=== PATIENT | female | born 1965 | race Caucasian/White ===

== ENCOUNTER → 2017-08-21 13:49 | Outpatient (CLI) | payer OTHER, SELFPAY ==
[2017-08-21 15:16] LABS: Add Manual Diff / Slide Review NO; Basophils Percent Auto 1.3 % (0-2); Eosinophils Percent Auto 2.4 % (2-4); Hematocrit 41.9 % (36-46); Hemoglobin 14.2 g/dL (12.0-16.0); Lymphocytes Percent Auto 39.7 % (25-40); Mean Corpuscular HGB Conc 33.8 % (30-36); Mean Corpuscular Hemoglobin 31.1 PG (26-34); Mean Corpuscular Volume 92.1 fL (80-100); Monocytes Percent Auto 7.9 % (3-14); Neutrophils Absolute Auto 3000 /uL (3000-5900); Neutrophils Percent Auto 48.7 % (50-75); Platelet Count 295 X10^3/uL (150-400); Red Blood Cell Count 4.55 X10^6/uL (4.0-5.2); Red Cell Distribution Width 15.2 % (11.6-14.8); White Blood Cell Count 6.2 X10^3/uL (4.5-11.0)
[2017-08-21 15:25] LABS: Alanine Aminotransferase 37 IU/L (9-52); Albumin 4.7 g/dL (3.5-5.0); Albumin Globulin Ratio 1.6 (1.0-2.8); Alkaline Phosphatase 68 U/L (38-126); Aspartate Aminotransferase 34 IU/L (14-36); BUN Creatinine Ratio 23.3 (6-22); Bilirubin Total 0.7 mg/dL (0.2-1.3); Blood Urea Nitrogen 14 mg/dL (7-17); Calcium 9.1 mg/dL (8.4-10.2); Carbon Dioxide 27 mmol/L (22-32); Chloride 102 mmol/L (98-107); Estimated Glomerular Filt Rate > 60.0 mL/min (>60); Glucose 94 mg/dL (70-100); HEMOLYSIS 42 (0-50); Sodium 142 mmol/L (137-145); Total Protein 7.7 g/dL (6.3-8.2)
[2017-08-21 16:24] LABS: TSH w/ Reflex to FT4 2.46 uIU/mL (0.47-4.68)
[2017-08-25 14:26] LABS: 1 25 Dihydroxy Vitamin D 76 pg/mL (18-72)
== END ==
PROVIDERS: Family Provider Specialist; PCP Physician Assistant; Visit Provider Physician Assistant
DX: E55.9 Vitamin D deficiency, unspecified (principal); R53.83 Other fatigue; Z98.890 Other specified postprocedural states
CPT/HCPCS: 36415; 80053; 82652; 84443; 85025

== ENCOUNTER → 2017-12-15 10:00 | Outpatient (CLI) | payer OTHER, SELFPAY | PROVIDERS: Family Provider Specialist; PCP Physician Assistant | DX: Z23 Encounter for immunization (principal) | CPT/HCPCS: 90471; 90686 ==

== ENCOUNTER → 2018-09-13 11:26 | Outpatient (CLI) | payer OTHER, SELFPAY ==
--- NOTE | 2018-09-13 | DI.MG.S_ITS ---
BILATERAL DIGITAL SCREENING MAMMOGRAM 3D/2D WITH CAD: 09/13/2018 CLINICAL: Routine screening. Family history of breast cancer. Comparison is made to exams dated: 05/08/2017 mammogram, 04/21/2016 mammogram, and 11/06/2014 mammogram - [facility]. There are scattered fibroglandular elements in both breasts. Current study was also evaluated with a Computer Aided Detection (CAD) system. No significant masses, calcifications, or other findings are seen in either breast. There has been no significant interval change. IMPRESSION: NEGATIVE There is no mammographic evidence of malignancy. A 1 year screening mammogram is recommended. This exam was interpreted at Station ID: [id number]. NOTE: For mammograms, a report in lay terms will be sent to the patient. Approximately 15% of breast malignancies will not be visualized mammographically. In the management of a palpable breast mass, a negative mammogram must not discourage biopsy of a clinically suspicious lesion. Electronically Signed By: Bryon valdivia/connie:09/13/2018 12:01:14 letter sent: Normal Exam ACR BI-RADS Category 1: Negative 3341F
== END ==
PROVIDERS: Family Provider Specialist; PCP Physician Assistant; Visit Provider Physician Assistant
DX: Z12.31 Encounter for screening mammogram for malignant neoplasm of breast (principal); Z80.3 Family history of malignant neoplasm of breast
CPT/HCPCS: 77063; 77067

== ENCOUNTER → 2018-12-09 13:57 | Outpatient (CLI) | payer OTHER, SELFPAY | PROVIDERS: PCP Physician Assistant | DX: Z23 Encounter for immunization (principal) | CPT/HCPCS: 90471; 90686 ==

== ENCOUNTER → 2019-12-09 11:14 | Outpatient (CLI) | payer OTHER, SELFPAY ==
--- NOTE | 2019-12-09 | DI.MG.S_ITS ---
BILATERAL DIGITAL SCREENING MAMMOGRAM 3D/2D WITH CAD: 12/09/2019 CLINICAL: Routine screening. Family history of breast cancer. Comparison is made to exams dated: 09/13/2018 mammogram, 05/08/2017 mammogram, and 04/21/2016 mammogram - [facility]. There are scattered fibroglandular elements in both breasts. Current study was also evaluated with a Computer Aided Detection (CAD) system. There are grouped calcifications in the left breast central to the nipple middle depth. No other significant masses, calcifications, or other findings are seen in either breast. IMPRESSION: INCOMPLETE: NEEDS ADDITIONAL IMAGING EVALUATION The grouped calcifications in the left breast are indeterminate. A spot compression view is recommended. This exam was interpreted at Station ID: [id number]. NOTE: For mammograms, a report in lay terms will be sent to the patient. Approximately 15% of breast malignancies will not be visualized mammographically. In the management of a palpable breast mass, a negative mammogram must not discourage biopsy of a clinically suspicious lesion. Electronically Signed By: Moriah Campos M.D. lk/:12/09/2019 11:51:44 letter sent: Additional Imaging Needed ACR BI-RADS Category 0: Incomplete 3340F
== END ==
PROVIDERS: PCP Physician Assistant; Referring Provider Physician Assistant; Visit Provider Physician Assistant
DX: Z12.31 Encounter for screening mammogram for malignant neoplasm of breast (principal); Z80.3 Family history of malignant neoplasm of breast
CPT/HCPCS: 77063; 77067

== ENCOUNTER → 2019-12-30 09:46 | Outpatient (CLI) | payer OTHER, SELFPAY ==
[2019-12-30 10:50] LABS: Add Manual Diff / Slide Review NO; Basophils Absolute Auto 0 /uL (0-100); Basophils Percent Auto 0.3 % (0-2); Eosinophils Absolute Auto 100 /uL (0-450); Eosinophils Percent Auto 0.6 % (2-4); Hematocrit 41.1 % (36-46); Hemoglobin 13.7 g/dL (12.0-16.0); Lymphocytes Absolute Auto 1500 /uL (1100-4500); Lymphocytes Percent Auto 16.6 % (25-40); Mean Corpuscular HGB Conc 33.5 % (30-36); Mean Corpuscular Volume 95.6 fL (80-100); Monocytes Absolute Auto 600 /uL (0-900); Monocytes Percent Auto 6.5 % (3-14); Neutrophils Absolute Auto 7000 /uL (1500-7000); Platelet Count 311 X10^3/uL (150-400); Red Cell Distribution Width 13.1 % (11.6-14.8); White Blood Cell Count 9.2 X10^3/uL (4.5-11.0)
[2019-12-30 11:01] LABS: Alanine Aminotransferase 27 IU/L (<35); Albumin 4.7 g/dL (3.5-5.0); Albumin Globulin Ratio 1.7 (1.0-2.8); Alkaline Phosphatase 74 U/L (38-126); Aspartate Aminotransferase 27 IU/L (14-36); BUN Creatinine Ratio 20.9 (6-22); Bilirubin Total 0.6 mg/dL (0.2-1.3); Blood Urea Nitrogen 14 mg/dL (7-17); Calcium 9.7 mg/dL (8.4-10.2); Carbon Dioxide 26 mmol/L (22-32); Chloride 107 mmol/L (98-107); Cholesterol 150 mg/dL (140-199); Estimated Glomerular Filt Rate > 60.0 mL/min (>60); Globulin 2.7 g/dL (1.7-4.1); Glucose 92 mg/dL (70-100); HDL Cholesterol 69 mg/dL (40-60); HEMOLYSIS < 15 (0-50); LDL Cholesterol Calculated 70 mg/dL (<100); Potassium 4.3 mmol/L (3.4-5.1); Sodium 140 mmol/L (137-145); Total Protein 7.4 g/dL (6.3-8.2); Triglycerides 57 mg/dL (35-150)
[2019-12-30 11:52] LABS: Vitamin D 25 Hydroxy (D3) 36.6 ng/mL (30.0-100.0)
== END ==
PROVIDERS: PCP Physician Assistant; Referring Provider Physician Assistant; Visit Provider Physician Assistant
DX: F41.9 Anxiety disorder, unspecified (principal); E55.9 Vitamin D deficiency, unspecified; E78.2 Mixed hyperlipidemia
CPT/HCPCS: 36415; 80053; 80061; 82306; 85025

== ENCOUNTER → 2020-03-14 07:50 | Outpatient (CLI) | payer OTHER, SELFPAY ==
[2020-03-14] MEDS: COVID-19 VACC(MODERNA-1)/PF 100 MCG/0.5 ML VIAL IM (07:56)
== END ==
PROVIDERS: PCP Family Medicine; Visit Provider Internal Medicine
DX: Z23 Encounter for immunization (principal)
CPT/HCPCS: 0011A; 91301

== ENCOUNTER → 2020-04-10 07:56 | Outpatient (CLI) | payer OTHER, SELFPAY ==
[2020-04-10] MEDS: COVID-19 VACC #2, MRNA(MOD) 100 MCG/0.5 ML VIAL IM (08:09)
== END ==
PROVIDERS: PCP Family Medicine; Visit Provider Internal Medicine
DX: Z23 Encounter for immunization (principal)
CPT/HCPCS: 0012A; 91301

== ENCOUNTER → 2020-12-13 13:17 | Outpatient (CLI) | payer OTHER, SELFPAY ==
--- NOTE | 2021-01-03 08:41 | PM.CARDMON.1 ---
[employer] Report Referral & Results Date Patient Seen: 12/13/20 Requesting provider: Valencia Brush Indication: Palpitations Duration of monitoring (days): 10 Diary information: There were 3 patient triggered events and 1 patient diary entry Patient triggered events were associated with (within 45 seconds) sinus rhythm and PVCs Patient diary event was associated with sinus rhythm only Data: Minimum heart rate was 42 beats per minute at 02:06 on 12/23/2020 Maximum heart rate was 176 beats per minute at 09:13 on 12/19/2020 during a run of SVT Less than 1% of identified beats were ventricular or supraventricular ectopic in origin, which would classify them as rare. There were 4 runs of SVT the fastest being the 6 beat run noted above at 174 beats per minute, which was also the longest run Impression: Essentially normal 10 day alarm security or surveillance monitor and Patient's symptoms of palpitations may be due to simple PVCs. Overall burden of PVCs was rare Very rare very brief runs of a supraventricular source as well. Clinical correlation suggested
== END ==
PROVIDERS: PCP Family Medicine; Referring Provider Physician Assistant; Visit Provider Physician Assistant
DX: R00.2 Palpitations (principal)
CPT/HCPCS: 93246; 93248

== ENCOUNTER → 2020-12-13 | Outpatient (CLI) | payer OTHER, SELFPAY | PROVIDERS: PCP Family Medicine; Referring Provider Internal Medicine; Visit Provider Internal Medicine | DX: Z23 Encounter for immunization (principal) | CPT/HCPCS: 90471; 90686 ==

== ENCOUNTER → 2020-12-21 16:14 | Outpatient (CLI) | payer OTHER, SELFPAY | PROVIDERS: PCP Family Medicine; Referring Provider Physician Assistant; Visit Provider Physician Assistant | DX: Z12.31 Encounter for screening mammogram for malignant neoplasm of breast (principal); Z53.8 Procedure and treatment not carried out for other reasons ==

== ENCOUNTER → 2020-12-25 08:35 | Outpatient (CLI) | payer OTHER, SELFPAY ==
--- NOTE | 2020-12-25 | DI.MG.S_ITS ---
BILATERAL DIGITAL SCREENING MAMMOGRAM 3D/2D WITH CAD: 12/25/2020 CLINICAL: Routine screening. Family history of breast cancer. Comparison is made to exams dated: 12/09/2019 mammogram, 09/13/2018 mammogram, and 05/08/2017 mammogram - [facility]. There are scattered fibroglandular elements in both breasts. Current study was also evaluated with a Computer Aided Detection (CAD) system. No significant masses, calcifications, or other findings are seen in either breast. There has been no significant interval change. IMPRESSION: NEGATIVE There is no mammographic evidence of malignancy. A 1 year screening mammogram is recommended. This exam was interpreted at Station ID: [id number]. NOTE: For mammograms, a report in lay terms will be sent to the patient. Approximately 15% of breast malignancies will not be visualized mammographically. In the management of a palpable breast mass, a negative mammogram must not discourage biopsy of a clinically suspicious lesion. Electronically Signed By: Joni Velasquez M.D., jr/connie:12/25/2020 10:35:34 letter sent: Normal Exam ACR BI-RADS Category 1: Negative 3341F
== END ==
PROVIDERS: PCP Family Medicine; Referring Provider Physician Assistant; Visit Provider Physician Assistant
DX: Z12.31 Encounter for screening mammogram for malignant neoplasm of breast (principal); Z80.3 Family history of malignant neoplasm of breast
CPT/HCPCS: 77063; 77067

== ENCOUNTER → 2021-01-15 08:36 | Outpatient (CLI) | payer OTHER, SELFPAY ==
[2021-01-15 10:16] LABS: Add Manual Diff / Slide Review NO; Basophils Absolute Auto 100 /uL (0-100); Basophils Percent Auto 1.1 % (0-2); Eosinophils Absolute Auto 100 /uL (0-450); Eosinophils Percent Auto 1.4 % (2-4); Hematocrit 42.2 % (36-46); Hemoglobin 14.2 g/dL (12.0-16.0); Lymphocytes Absolute Auto 2400 /uL (1100-4500); Lymphocytes Percent Auto 30.8 % (25-40); Mean Corpuscular HGB Conc 33.7 % (30-36); Mean Corpuscular Hemoglobin 31.3 PG (26-34); Mean Corpuscular Volume 92.9 fL (80-100); Monocytes Absolute Auto 500 /uL (0-900); Monocytes Percent Auto 6.7 % (3-14); Neutrophils Absolute Auto 4700 /uL (1500-7000); Platelet Count 350 X10^3/uL (150-400); Red Blood Cell Count 4.54 X10^6/uL (4.0-5.2); Red Cell Distribution Width 13.3 % (11.6-14.8); White Blood Cell Count 7.8 X10^3/uL (4.5-11.0)
[2021-01-15 10:36] LABS: Alanine Aminotransferase 35 IU/L (<35); Albumin 5.1 g/dL (3.5-5.0); Albumin Globulin Ratio 1.7 (1.0-2.8); Alkaline Phosphatase 92 U/L (38-126); Aspartate Aminotransferase 35 IU/L (14-36); BUN Creatinine Ratio 14.7 (6-22); Bilirubin Total 0.5 mg/dL (0.2-1.3); Blood Urea Nitrogen 11 mg/dL (7-17); Calcium 9.9 mg/dL (8.4-10.2); Carbon Dioxide 25 mmol/L (22-32); Chloride 105 mmol/L (98-107); Cholesterol 187 mg/dL (140-199); Estimated Glomerular Filt Rate > 60.0 mL/min (>60); Glucose 94 mg/dL (70-100); HDL Cholesterol 87 mg/dL (40-60); HEMOLYSIS < 15 (0-50); LDL Cholesterol Calculated 83 mg/dL (<100); Magnesium 2.1 mg/dL (1.6-2.3); Potassium 4.5 mmol/L (3.4-5.1); Sodium 140 mmol/L (137-145); Total Protein 8.1 g/dL (6.3-8.2); Triglycerides 86 mg/dL (35-150)
[2021-01-15 10:44] LABS: Vitamin D 25 Hydroxy (D3) 52.8 ng/mL (30.0-100.0)
[2021-01-15 10:57] LABS: TSH w/ Reflex to FT4 2.68 uIU/mL (0.47-4.68)
== END ==
PROVIDERS: PCP Family Medicine; Referring Provider Physician Assistant; Visit Provider Physician Assistant
DX: R00.2 Palpitations (principal); I49.3 Ventricular premature depolarization; E78.2 Mixed hyperlipidemia; E55.9 Vitamin D deficiency, unspecified
CPT/HCPCS: 36415; 80053; 80061; 82306; 83735; 84443; 85025

== ENCOUNTER → 2021-02-08 14:54 | Outpatient (CLI) | payer OTHER, SELFPAY ==
--- NOTE | 2021-02-08 14:56 | DI.RAD.S_ITS ---
PROCEDURE: XR DEXA AXIAL SKELETON INDICATIONS: Other specified disorders of bone density and stru COMPARISON: None. FINDINGS: This blank DEXA report has been sent in error by the PACS system. The correct and complete report will be forthcoming in 1-2 days. Thank you for your patience and understanding. Dictated by: Philomena Tierney MD, PhD on 02/08/2021 at 16:51 Approved by: Philomena Tierney MD, PhD on 02/08/2021 at 16:52
== END ==
PROVIDERS: PCP Family Medicine; Referring Provider Physician Assistant; Visit Provider Physician Assistant
DX: M85.851 Other specified disorders of bone density and structure, right thigh (principal); Z78.0 Asymptomatic menopausal state; Z82.62 Family history of osteoporosis
CPT/HCPCS: 77080

== ENCOUNTER 2021-03-06 23:40 | Emergency (ER) | payer OTHER, SELFPAY ==
--- NOTE | 2021-03-06 23:59 | ED_ITS ---
HPI - Syncope General Chief Complaint: Syncope Stated Complaint: fainted/hit forhead Time Seen by Provider: 03/06/21 23:50 History of Present Illness HPI narrative: 55-year-old female nonsmoker with historically low blood pressure presents with a chief complaint of a head injury after a single pull episode just prior to her arrival. She had been in her normal state of health this evening and had laid down and take a nap on the couch. She went to get up and felt lightheaded which is not necessarily abnormal for her. She sat back for a moment and then upon trying to stand she blacked out fell forward striking her head on the ground. Since then she has had some nausea and continues to be unsteady on her feet. She has had no vomiting and takes no blood thinners. She denies any recent illness. She has had no change in medications or diet. Related Data Home Medications Medication Instructions Recorded Confirmed clonazepam 0.5 mg tablet 0.25 mg PO BEDTIME PRN 01/10/20 01/10/20 levonorgestrel 20 mcg/24 hours (7 INTRAUTERINE 01/10/20 01/10/20 yrs) 52 mg intrauterine device (Mirena) Previous Rx's Medication Instructions Recorded meclizine 25 mg tablet 25 mg PO BID-TID PRN #14 tab 03/07/21 ondansetron 4 mg disintegrating 4 mg PO TID-QID PRN #20 tab 03/07/21 tablet promethazine 25 mg rectal 25 mg WA Q6H PRN #12 ea 03/07/21 suppository Allergies Allergy/AdvReac Type Severity Reaction Status Date / Time No Known Drug Allergies Allergy Unverified 03/07/21 00:17 Review of Systems Review of Systems Narrative: GENERAL: Denies chills, fatigue, malaise, fever, sweats. HEENT: Denies sinus pain, ear pain, sore throat, difficulty swallowing, dizziness. RESPIRATORY: Denies dyspnea, cough, wheezing, hemoptysis, sputum. CARDIOVASCULAR: See HPI GASTROINTESTINAL: Denies nausea, vomiting, abdominal pain, diarrhea, constip ation, melena. : Denies dysuria, frequency, incontinence, hematuria, urinary retention. MUSCULOSKELETAL: denies weakness, joint pain, or bony pain SKIN: See HPI NEUROLOGIC: Denies weakness, headache, numbness, change in speech, confusion, seizures, incoordination. PSYCHIATRIC: No concerning psychosocial issues. 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 ([employer] seatbelt use: always working smoke detector in home: Yes fire extinguisher in home: Yes carbon monox detector in home: Yes do you feel safe at home: Yes Smoking Status: Never smoker second hand exposure: No alcohol intake: current substance use type: does not use Smoking Status: Never smoker Exam Narrative Exam Narrative: GENERAL: [55 year old patient appears stated age. Well-developed patient, in mild distress. GCS 15 HEAD: Forehead contusion with central laceration and minimal active bleeding, no evidence of depressed skull fracture EYES: Pupils equal round and reactive. No hyphema Extraocular motions intact. No scleral icterus. No injection or drainage. ENT: Nose without bleeding, purulent drainage. No nasal septal hematoma or malocclusion Throat without erythema, tonsillar hypertrophy or exudate. Airway patent. NECK: Trachea midline. Non tender CARDIOVASCULAR: Regular rate and rhythm without murmurs, gallops, or rubs. RESPIRATORY: Clear to auscultation. Breath sounds equal bilaterally. No wheezes, rales, or rhonchi. GASTROINTESTINAL: Abdomen soft, non-tender, nondistended. EXTREMITIES: No edema or joint tenderness. BACK: Nontender without deformity or crepitance. No flank tenderness. NEURO: AOx3. SKIN: No rash or erythema of visible areas Initial Vital Signs Initial Vital Signs: Vital Signs Temperature 97.9 F 03/07/21 00:00 Pulse Rate 84 03/07/21 00:00 Respiratory Rate 16 03/07/21 00:00 Blood Pressure 156/62 H 03/07/21 00:00 Pulse Oximetry 98 03/07/21 00:00 Course Orders Ordered: Discontinued Medications Acetaminophen (Acetaminophen 325 Mg Tablet) 650 mg PO NOW ONE Stop: 03/07/21 03:23 Last Admin: 03/07/21 03:30 Dose: 650 mg Documented by: GHANSHYAM Sodium Chloride (Normal Saline 0.9%) 1,000 mls @ 1,000 mls/hr IV BOLUS ONE Stop: 03/07/21 01:01 Last Infusion: 03/07/21 02:26 Dose: 0 mls/hr Documented by: Admin: 03/07/21 00:30 Dose: 1,000 mls/hr Documented by: GHANSHYAM Sodium Chloride (Normal Saline 0.9%) 500 mls @ 1,000 mls/hr IV BOLUS ONE Stop: 03/07/21 06:00 Last Infusion: 03/07/21 06:33 Dose: 0 mls/hr Documented by: Admin: 03/07/21 05:57 Dose: 1,000 mls/hr Documented by: ANIKA Lorazepam (Lorazepam 2 Mg/Ml Inj) 0.5 mg IV NOW ONE Stop: 03/07/21 04:15 Last Admin: 03/07/21 04:24 Dose: 0.5 mg Documented by: ANIKA Meclizine HCl (Meclizine Hcl 12.5 Mg Tablet) 50 mg PO NOW ONE Stop: 03/07/21 03:24 Last Admin: 03/07/21 03:29 Dose: 50 mg Documented by: GHANSHYAM Ondansetron HCl (Ondansetron 4 Mg/2 Ml Inj) 4 mg IV NOW ONE Stop: 03/07/21 00:21 Last Admin: 03/07/21 00:27 Dose: 4 mg Documented by: GHANSHYAM Ondansetron HCl (Ondansetron 4 Mg/2 Ml Inj) 4 mg IV NOW ONE Stop: 03/07/21 01:57 Last Admin: 03/07/21 01:59 Dose: 4 mg Documented by: ANÍBAL Ondansetron HCl (Ondansetron 4 Mg Odt Prepack) 1 bottle MISC SEEINSTR ONE Stop: 03/07/21 06:06 Last Admin: 03/07/21 06:18 Dose: 1 bottle Documented by: ANÍBAL Pantoprazole Sodium (Pantoprazole 40 Mg Vial) 40 mg IV NOW ONE Stop: 03/07/21 01:36 Last Admin: 03/07/21 01:59 Dose: 40 mg Documented by: ANÍBAL Vital Signs Vital signs: Vital Signs - 8 hr 03/07/21 00:00 03/07/21 00:56 03/07/21 01:00 Temperature 97.9 F Pulse Rate 84 76 79 Pulse Rate [Orthostatic Sitting] Pulse Rate [Orthostatic Standing] Respiratory Rate 16 13 24 Blood Pressure 156/62 H 129/78 Blood Pressure [Orthostatic Sitting] Blood Pressure [Orthostatic Standing] Pulse Oximetry 98 99 98 03/07/21 01:18 03/07/21 01:21 03/07/21 01:27 Temperature Pulse Rate 75 86 Pulse Rate [Orthostatic Sitting] 75 Pulse Rate [Orthostatic Standing] 20 L Respiratory Rate 16 25 H Blood Pressure 139/75 137/76 Blood Pressure [Orthostatic Sitting] 139/75 Blood Pressure [Orthostatic Standing] 137/76 Pulse Oximetry 99 99 03/07/21 01:30 03/07/21 02:00 03/07/21 03:31 Temperature Pulse Rate 92 H 86 Pulse Rate [Orthostatic Sitting] Pulse Rate [Orthostatic Standing] Respiratory Rate 33 H 28 H Blood Pressure Blood Pressure [Orthostatic Sitting] Blood Pressure [Orthostatic Standing] Pulse Oximetry 80 L MDM - Syncope Lab Data Result diagrams: 03/07/21 00:06 03/07/21 00:06 Labs: Lab Results 03/07/21 03/07/21 Range/Units 00:06 00:06 WBC 6.9 (4.5-11.0) X10^3/uL RBC 4.55 (4.0-5.2) X10^6/uL Hgb 14.1 (12.0-16.0) g/dL Hct 42.3 (36-46) % MCV 93.0 (80-100) fL MCH 31.0 (26-34) PG MCHC 33.3 (30-36) % RDW 14.0 (11.6-14.8) % Plt Count 340 (150-400) X10^3/uL Neut % (Auto) 43.7 L (50-75) % Lymph % (Auto) 45.8 H (25-40) % [place] % (Auto) 7.4 (3-14) % Eos % (Auto) 2.1 (2-4) % Baso % (Auto) 1.0 (0-2) % Neut # (Auto) 3000 (8782-7317) /uL Lymph # (Auto) 3100 (3654-7636) /uL [place] # (Auto) 500 (0-900) /uL Eos # (Auto) 100 (0-450) /uL Baso # (Auto) 100 (0-100) /uL Sodium 143 (137-145) mmol/L Potassium 3.7 (3.4-5.1) mmol/L Chloride 106 (98-107) mmol/L Carbon Dioxide 29 (22-32) mmol/L BUN 13 (7-17) mg/dL Creatinine 0.77 (0.52-1.04) mg/dL Estimated GFR > 60.0 (>60) mL/min BUN/Creatinine Ratio 16.9 (6-22) Glucose 110 H (70-100) mg/dL Calcium 10.1 (8.4-10.2) mg/dL Imaging Data CT scan - head: Radiologist's Impression: [address] [address] [address] Scan Report Signed Patient: Marie Little MR#: [id number] : 1965 Acct:[id number] Age/Sex: 55 / F Date of Service: 03/07/21 Loc: ED Accession Number: [id number] ?? Procedure: CT head/brain wo con Ordering Provider: Roman Avendaño D.O. PROCEDURE:? CT HEAD/BRAIN WO CON ? INDICATIONS:? syncope, head injury ? TECHNIQUE:? Noncontrast 4.5 mm thick angled axial sections acquired from the foramen magnum to the vertex, with coronal and sagittal reformats.? For radiation dose reduction, the following was used:? automated exposure control, adjustment of mA and/or kV according to patient size.? ? COMPARISON:? None. ? FINDINGS:? Image quality:? Excellent.? ? CSF spaces:? Basal cisterns are patent.? No extra-axial fluid collections.? Ventricles are normal in size and shape.? ? Brain:? No midline shift.? No intracranial masses or hemorrhage.? Nuñez-white matter interface is normal.? ? Skull and face:? Calvarium and visualized facial bones are intact, without suspicious lesions.? Minimal left frontal scalp hematoma. ? Sinuses:? Visualized sinuses and mastoids are clear.? ? IMPRESSION:? ? 1. No acute intracranial process. ? 2.? Minimal left frontal scalp hematoma.? ? Dictated by: Amada Coto M.D. on 03/07/2021 at 0:53 ? ? Approved by: Amada Coto M.D. on 03/07/2021 at 0:54 ? MDM Narrative Medical decision making narrative: Patient feeling much better after above stated therapies. She's able to keep fluids down and has ambulated to the bathroom. She often has low BP (90s) and likely became a bit dehydrated yesterday at work. She became dizzy upon standing and fell to the ground striking her head. Labs were reassuring and imaging shows no evidence of intracranial abnormality. Her dizziness was largely positional and reproducible and presented in a different way after the fall. She likely has a post concussive syndrome and the possibility of traumatic BPPV is also considered. She's given extensive return precautions and has had her questions answered to her apparent satisfaction Discharge Plan Departure Patient Disposition: Home Clinical Impression: Syncope, Post concussion syndrome Instructions: DI for Concussion Activity Restrictions/Additional Instructions: *You have been diagnosed with [orthostatic hypotension resulting in syncope, head injury and postconcussive syndrome *What to do: *Please continue to take your regular medications as directed. [ x] New medication prescriptions sent to your pharmacy: [facility] ] [ ] New medication written as a paper prescription [ ] No new medications given *Please follow up with your primary care provider in 2-3 days, call for an appointment. Let them know you were seen in the Emergency Department and that we ask that you be seen in follow up. We will electronically transmit a record of today's note if your PCP is in our system *If you do not have a primary care provider please contact the [facility] Resource line at [phone]. They will ask some questions about your medical history and help get you set up with a doctor in the community. *Return to Emergency Department if you should have any new, worsening or concerning symptoms, such as [fever greater than 101 F, shaking chills, worsening pain, persistent vomiting or other bothersome symptoms] Prescriptions: New ondansetron 4 mg tablet,disintegrating 4 mg PO TID-QID PRN (Reason: nausea and vomiting) Qty: 20 0RF promethazine 25 mg suppository 25 mg WA Q6H PRN (Reason: nausea and vomiting) Qty: 12 0RF meclizine 25 mg tablet 25 mg PO BID-TID PRN (Reason: dizziness) Qty: 14 0RF No Action Mirena 20 mcg/24 hours (5 yrs) 52 mg intrauterine device intrauterine 0RF clonazepam 0.5 mg tablet 0.25 mg PO BEDTIME PRN0RF Rx Instructions: administer 30 minutes before bedtime Referrals: Chayito Melissa MD [Primary Care Provider] -
[2021-03-07] VITALS (12 sets, daily range): BP systolic 119–156; BP diastolic 62–78; PULSE 20–94; RESP 13–33; TEMP 36.6; O2SAT 80–99
--- NOTE | 2021-03-07 00:03 | DI.CT.S_ITS ---
PROCEDURE: CT HEAD/BRAIN WO CON INDICATIONS: syncope, head injury TECHNIQUE: Noncontrast 4.5 mm thick angled axial sections acquired from the foramen magnum to the vertex, with coronal and sagittal reformats. For radiation dose reduction, the following was used: automated exposure control, adjustment of mA and/or kV according to patient size. COMPARISON: None. FINDINGS: Image quality: Excellent. CSF spaces: Basal cisterns are patent. No extra-axial fluid collections. Ventricles are normal in size and shape. Brain: No midline shift. No intracranial masses or hemorrhage. Nuñez-white matter interface is normal. Skull and face: Calvarium and visualized facial bones are intact, without suspicious lesions. Minimal left frontal scalp hematoma. Sinuses: Visualized sinuses and mastoids are clear. IMPRESSION: 1. No acute intracranial process. 2. Minimal left frontal scalp hematoma. Dictated by: Amada Coto M.D. on 03/07/2021 at 0:53 Approved by: Amada Coto M.D. on 03/07/2021 at 0:54
[2021-03-07 00:23] LABS: BUN Creatinine Ratio 16.9 (6-22); Blood Urea Nitrogen 13 mg/dL (7-17); Calcium 10.1 mg/dL (8.4-10.2); Carbon Dioxide 29 mmol/L (22-32); Chloride 106 mmol/L (98-107); Estimated Glomerular Filt Rate > 60.0 mL/min (>60); Glucose 110 mg/dL (70-100); HEMOLYSIS < 15 (0-50); Potassium 3.7 mmol/L (3.4-5.1); Sodium 143 mmol/L (137-145)
[2021-03-07] MEDS: ONDANSETRON 4 MG/2 ML INJ IV ×2 (00:27→01:59)
[2021-03-07 00:30] LABS: Add Manual Diff / Slide Review NO; Basophils Absolute Auto 100 /uL (0-100); Eosinophils Absolute Auto 100 /uL (0-450); Eosinophils Percent Auto 2.1 % (2-4); Hematocrit 42.3 % (36-46); Hemoglobin 14.1 g/dL (12.0-16.0); Lymphocytes Absolute Auto 3100 /uL (1100-4500); Lymphocytes Percent Auto 45.8 % (25-40); Mean Corpuscular HGB Conc 33.3 % (30-36); Monocytes Absolute Auto 500 /uL (0-900); Monocytes Percent Auto 7.4 % (3-14); Neutrophils Absolute Auto 3000 /uL (1500-7000); Neutrophils Percent Auto 43.7 % (50-75); Platelet Count 340 X10^3/uL (150-400); Red Blood Cell Count 4.55 X10^6/uL (4.0-5.2); White Blood Cell Count 6.9 X10^3/uL (4.5-11.0)
[2021-03-07] MEDS: SODIUM CHLORIDE 0.9% 1,000 ML 1000 ML IV (00:30)
--- NOTE | 2021-03-07 01:28 | DI.CT.S_ITS ---
PROCEDURE: CT ANGIO HEAD AND NECK INDICATIONS: severe dizziness, after trauma, vision change TECHNIQUE: After the administration of intravenous contrast, 1 mm thick sections acquired from the aortic arch through the [place] of [place]. Post-contrast 4.5 mm thick sections then re-acquired from the foramen magnum to the vertex. 3-dimensional ihtujxi-fubvqvkxs-khqgxkrjwf (MIP) and/or volume rendering reformats were acquired of the central intracranial vasculature and neck separately. COMPARISON: [facility], CT, CT HEAD/BRAIN WO CON, 03/07/2021, 0:42. FINDINGS: Image quality: Excellent. BRAIN: CSF spaces: Ventricles are normal in size and shape. Basal cisterns are patent. No extra-axial fluid collections. Brain: No midline shift. No intracranial bleeds or masses. Nuñez-white matter interface appears intact. Skull and face: Calvarium and facial bones appear intact, without suspicious lesions. Orbits appear normal. Minimal left frontal scalp hematoma. Sinuses: Sinuses and mastoids are clear. HEAD CT ANGIOGRAPHY: Anterior circulation: Intracranial internal carotid arteries are normal in size and flow. The flow within the paired anterior cerebral arteries is normal and symmetric. The flow within the middle cerebral arteries is normal and symmetric. The anterior communicating artery is seen. No aneurysms are seen. Posterior circulation: Visualized portions of the vertebral arteries demonstrate normal caliber, and join to form a normal appearing basilar artery. Flow within the posterior cerebral arteries is normal and symmetric. No aneurysms are seen. Vertebral arteries are codominant. NECK CT ANGIOGRAPHY: Carotid system: The great vessels demonstrate a conventional anatomy as they arise from the aortic arch. The origins of the common carotid arteries appear patent. The common carotid arteries demonstrate normal caliber and courses. The bifurcation regions are both widely patent. The internal carotid arteries demonstrate normal calibers and courses. Posterior circulation: The origins of the vertebral arteries both appear widely patent. The more superior extracranial portions of both vertebral arteries also demonstrate normal courses and calibers. They join to form a normal appearing basilar artery. Soft tissues: Visualized neck soft tissues demonstrate no suspicious abnormalities. Bones: No suspicious bony lesions. Visualized cervical spine appears normally aligned. IMPRESSION: 1. No acute intracranial process. 2. Minimal left frontal scalp hematoma. 3. No areas of hemodynamically significant stenosis, vascular occlusion or aneurysmal dilation within the anterior or posterior circulation. 4. No areas of hemodynamically significant stenosis, vascular occlusion or aneurysmal dilation within the neck vasculature. Any quantitative measurements of stenosis were performed using NASCET criteria. Dictated by: Amada Coto M.D. on 03/07/2021 at 1:59 Approved by: Amada Coto M.D. on 03/07/2021 at 2:02
[2021-03-07] MEDS: PANTOPRAZOLE 40 MG VIAL IV (01:59)
[2021-03-07] MEDS: MECLIZINE HCL 12.5 MG TABLET 50 MG PO (03:29)
[2021-03-07] MEDS: ACETAMINOPHEN 325 MG TABLET 650 MG PO (03:30)
[2021-03-07] MEDS: LORazepam 2 MG/ML INJ 0.5 MG IV (04:24)
--- NOTE | 2021-03-07 05:15 | PC.NURSE ---
reports ativan helped the nausea. reports able to lay down more than before.
[2021-03-07] MEDS: SODIUM CHLORIDE 0.9% 500 ML 1000 ML IV (05:57)
[2021-03-07] MEDS: ONDANSETRON 4 MG ODT PREPACK 1 BOTTLE MISC (06:18)
== END 2021-03-07 06:51 | disposition home or self-care (01) ==
PROVIDERS: Emergency Provider Emergency Medicine; PCP Family Medicine
DX: F07.81 Postconcussional syndrome (principal); I95.1 Orthostatic hypotension; S01.81XA Laceration without foreign body of other part of head, initial encounter; W18.30XA Fall on same level, unspecified, initial encounter
CPT/HCPCS: 36415; 70450; 70496; 70498; 80048; 85025; 93005; 96361; 96374; 96375; 96376; 99284; C9113; J2060; J2405; Q9967

== ENCOUNTER → 2021-12-17 11:09 | Outpatient (CLI) | payer OTHER, SELFPAY | PROVIDERS: PCP Family Medicine; Referring Provider Internal Medicine; Visit Provider Internal Medicine | DX: Z23 Encounter for immunization (principal) | CPT/HCPCS: 90471; 90686 ==

== ENCOUNTER → 2022-01-10 13:58 | Outpatient (CLI) | payer OTHER, SELFPAY ==
--- NOTE | 2022-01-10 | DI.MG.S_ITS ---
BILATERAL DIGITAL SCREENING MAMMOGRAM 3D/2D WITH CAD: 01/10/2022 CLINICAL: Routine screening. Family history of breast cancer. Comparison is made to exams dated: 12/25/2020 mammogram, 12/09/2019 mammogram, and 09/13/2018 mammogram - [facility]. There are scattered areas of fibroglandular density in both breasts (category b / 25%-50% glandular tissue). Current study was also evaluated with a Computer Aided Detection (CAD) system. There is a biopsy clip in the left breast. No significant masses, calcifications, or other findings are seen in either breast. There has been no significant interval change. IMPRESSION: NEGATIVE There is no mammographic evidence of malignancy. A 1 year screening mammogram is recommended. Based on the Tyrer Cuzick model (a risk assessment model) the patient's lifetime risk is 5.7% and her 10 year risk is 2.0%. According to the ACR, ACS, and NCCN guidelines, an annual breast MRI exam along with mammogram is recommended if the patient's lifetime risk is 20% or greater. This exam was interpreted at Station ID: [id number]. NOTE: For mammograms, a report in lay terms will be sent to the patient. Approximately 15% of breast malignancies will not be visualized mammographically. In the management of a palpable breast mass, a negative mammogram must not discourage biopsy of a clinically suspicious lesion. Electronically Signed By: Peter chaidez/connie:01/10/2022 14:32:28 letter sent: Normal Exam ACR BI-RADS Category 1: Negative 3341F
== END ==
PROVIDERS: PCP Family Medicine; Referring Provider Family Medicine; Visit Provider Family Medicine
DX: Z12.31 Encounter for screening mammogram for malignant neoplasm of breast (principal); Z80.3 Family history of malignant neoplasm of breast
CPT/HCPCS: 77063; 77067

== ENCOUNTER → 2022-03-06 08:36 | Outpatient (CLI) | payer OTHER, SELFPAY ==
[2022-03-06 09:28] LABS: Alanine Aminotransferase 36 IU/L (<35); Albumin 4.8 g/dL (3.5-5.0); Albumin Globulin Ratio 1.7 (1.0-2.8); Alkaline Phosphatase 95 U/L (38-126); Aspartate Aminotransferase 33 IU/L (14-36); BUN Creatinine Ratio 23.5 (6-22); Bilirubin Total 0.6 mg/dL (0.2-1.3); Blood Urea Nitrogen 16 mg/dL (7-17); Calcium 9.3 mg/dL (8.4-10.2); Carbon Dioxide 23 mmol/L (22-32); Chloride 105 mmol/L (98-107); Cholesterol 189 mg/dL (140-199); Estimated Glomerular Filt Rate > 60 mL/min (>60); Globulin 2.8 g/dL (1.7-4.1); Glucose 93 mg/dL (70-100); HDL Cholesterol 76 mg/dL (40-60); HEMOLYSIS < 15 (0-50); LDL Cholesterol Calculated 99 mg/dL (<100); Potassium 4.5 mmol/L (3.4-5.1); Sodium 141 mmol/L (137-145); Total Protein 7.6 g/dL (6.3-8.2); Triglycerides 68 mg/dL (35-150)
[2022-03-06 09:35] LABS: Add Manual Diff / Slide Review NO; Basophils Absolute Auto 0 /uL (0-100); Basophils Percent Auto 0.7 % (0-2); Eosinophils Absolute Auto 100 /uL (0-450); Hematocrit 40.9 % (36-46); Hemoglobin 13.8 g/dL (12.0-16.0); Lymphocytes Absolute Auto 2000 /uL (1100-4500); Lymphocytes Percent Auto 30.6 % (25-40); Mean Corpuscular HGB Conc 33.8 % (30-36); Mean Corpuscular Hemoglobin 31.6 PG (26-34); Mean Corpuscular Volume 93.4 fL (80-100); Monocytes Absolute Auto 500 /uL (0-900); Monocytes Percent Auto 7.2 % (3-14); Neutrophils Absolute Auto 4000 /uL (1500-7000); Neutrophils Percent Auto 60.5 % (50-75); Platelet Count 296 X10^3/uL (150-400); Red Blood Cell Count 4.37 X10^6/uL (4.0-5.2); Red Cell Distribution Width 13.2 % (11.6-14.8); White Blood Cell Count 6.6 X10^3/uL (4.5-11.0)
[2022-03-06 09:47] LABS: Vitamin D 25 Hydroxy (D3) 45.4 ng/mL (30.0-100.0)
== END ==
PROVIDERS: PCP Family Medicine; Referring Provider Physician Assistant; Visit Provider Physician Assistant
DX: E78.2 Mixed hyperlipidemia (principal); E55.9 Vitamin D deficiency, unspecified
CPT/HCPCS: 36415; 80053; 80061; 82306; 85025

== ENCOUNTER → 2022-12-11 14:16 | Outpatient (CLI) | payer OTHER, SELFPAY | PROVIDERS: PCP Family Medicine; Referring Provider Family Medicine; Visit Provider Family Medicine | DX: Z23 Encounter for immunization (principal) | CPT/HCPCS: 90471; 90686 ==

== ENCOUNTER → 2023-01-02 11:03 | Outpatient (CLI) | payer OTHER, SELFPAY ==
[2023-01-02 12:06] LABS: Add Manual Diff / Slide Review NO; Basophils Absolute Auto 0 /uL (0-100); Basophils Percent Auto 0.5 % (0-2); Eosinophils Absolute Auto 0 /uL (0-450); Eosinophils Percent Auto 0.5 % (2-4); Hematocrit 45.1 % (36-46); Hemoglobin 15.2 g/dL (12.0-16.0); Lymphocytes Absolute Auto 1400 /uL (1100-4500); Lymphocytes Percent Auto 19.6 % (25-40); Mean Corpuscular HGB Conc 33.7 % (30-36); Mean Corpuscular Hemoglobin 30.8 PG (26-34); Mean Corpuscular Volume 91.4 fL (80-100); Monocytes Absolute Auto 400 /uL (0-900); Neutrophils Absolute Auto 5400 /uL (1500-7000); Neutrophils Percent Auto 73.4 % (50-75); Platelet Count 324 X10^3/uL (150-400); Red Blood Cell Count 4.93 X10^6/uL (4.0-5.2); Red Cell Distribution Width 14.3 % (11.6-14.8); White Blood Cell Count 7.3 X10^3/uL (4.5-11.0)
[2023-01-02 12:26] LABS: Alanine Aminotransferase 36 IU/L (<35); Albumin 5.1 g/dL (3.5-5.0); Albumin Globulin Ratio 1.5 (1.0-2.8); Alkaline Phosphatase 87 U/L (38-126); Aspartate Aminotransferase 28 IU/L (14-36); BUN Creatinine Ratio 23.1 (6-22); Bilirubin Total 0.8 mg/dL (0.2-1.3); Blood Urea Nitrogen 18 mg/dL (7-17); Carbon Dioxide 25 mmol/L (22-32); Chloride 101 mmol/L (98-107); Cholesterol 205 mg/dL (140-199); Estimated Glomerular Filt Rate > 60 mL/min (>60); Globulin 3.4 g/dL (1.7-4.1); Glucose 96 mg/dL (70-100); HDL Cholesterol 83 mg/dL (40-60); HEMOLYSIS < 15 (0-50); LDL Cholesterol Calculated 103 mg/dL (<100); Potassium 4.2 mmol/L (3.4-5.1); Sodium 137 mmol/L (137-145); Total Protein 8.5 g/dL (6.3-8.2); Triglycerides 94 mg/dL (35-150)
[2023-01-02 12:39] LABS: Vitamin D 25 Hydroxy (D3) 43.6 ng/mL (30.0-100.0)
== END ==
PROVIDERS: PCP Family Medicine; Referring Provider Physician Assistant; Visit Provider Physician Assistant
DX: E55.9 Vitamin D deficiency, unspecified (principal); Z13.6 Encounter for screening for cardiovascular disorders; E78.2 Mixed hyperlipidemia
CPT/HCPCS: 36415; 80053; 80061; 82306; 85025

== ENCOUNTER → 2023-03-27 10:10 | Outpatient (CLI) | payer OTHER, SELFPAY ==
--- NOTE | 2023-03-27 | DI.RAD.S_ITS ---
Bone Density Report Name: KYRIE ESTRADA Age: 57 Sex: Female Ethnicity: White Date of : 1965 Indication: osteopenia; Referring Provider: VICTORINA HADDAD D.O. Study: Bone densitometry was performed. Exam Date: March 27, 2023 Accession number: [id number] Bone Density: Region BMD T-score Z-score Classification AP Spine(L1-L4) 0.982 -0.6 0.7 Normal Femoral Neck (Left) 0.668 -1.6 -0.4 Osteopenia Total Hip (Left) 0.796 -1.2 -0.3 Osteopenia Femoral Neck (Right) 0.653 -1.8 -0.5 Osteopenia Total Hip (Right) 0.736 -1.7 -0.8 Osteopenia Total Hip Mean 0.766 -1.5 -0.6 Osteopenia World Health Organization criteria for BMD impression classify patients as: Normal (T-score at or above -1.0), Osteopenia (T-score between -1.0 and -2.5), or Osteoporosis (T-score at or below -2.5). 10-year Fracture Risk(1): Major Osteoporotic Fracture 8.2% Hip Fracture 0.8% Reported Risk Factors: [place] (), Neck BMD=0.653, BMI=23.9 (1) FRAX(R) Version 3.08. Fracture probability calculated for an untreated patient. Fracture probability may be lower if the patient has received treatment. Previous Exams: -- Region Exam Age BMD T-score BMD Change BMD Change Date g/cm2 vs Baseline vs Previous -- AP Spine (L1-L4) 03/27/2023 57 0.982 -0.6 -0.131 (-11.8%)# -0.011 (-1.1%)# 02/08/2021 55 0.993 -0.5 -0.120 (-10.8%)* -0.120 (-10.8%)* 02/16/2017 51 1.113 0.6 Total Hip(Left) 03/27/2023 57 0.796 -1.2 -0.052 (-6.2%)# -0.020 (-2.4%)# 02/08/2021 55 0.816 -1.0 -0.033 (-3.9%)* -0.033 (-3.9%)* 02/16/2017 51 0.848 -0.8 Total Hip(Right) 03/27/2023 57 0.736 -1.7 -0.036 (-4.7%)# -0.022 (-2.9%)# 02/08/2021 55 0.757 -1.5 -0.015 (-1.9%) -0.015 (-1.9%) 02/16/2017 51 0.772 -1.4 -- *Denotes significance at 95% confidence level, LSC for AP Spine = 0.022 g/cm2, LSC for Total Hip = 0.027 g/cm2 # Denotes dissimilar scan types or analysis methods Impression: The patient has low bone mass, based on the Right Femoral Neck T-score. The patient has an estimated ten-year risk of hip fracture of 0.8% and an estimated ten-year risk of major fracture of 8.2%, based on the WHO FRAX algorithm. No significant bone loss was observed. Discussion: BONE DENSITY IS LOW AT ONE OR MORE SKELETAL SITES. This patient's lowest T-score is low at one or more skeletal sites. It meets the World Health Organization's (WHO) criteria for low bone mass (T-score between -1.0 and -2.5). The patient's 10-year risk of fracture as calculated by FRAX is less than the threshold where pharmacological therapy is recommended by the National Osteoporosis Foundation (NOF). However, all treatment decisions require clinical judgment and consideration of individual patient factors, including patient preferences, comorbidities, previous drug use, risk factors not captured in the FRAX model (e.g., frailty, falls, vitamin D deficiency, increased bone turnover, interval significant decline in bone density) and possible under or overestimation of fracture risk by FRAX. The patient should follow a healthful lifestyle (good nutrition with adequate calcium and vitamin D, and appropriate weight-bearing exercise). Follow-Up: Consider repeating this study in 2 to 3 years to reassess this patient's status, or sooner if there is some new clinical indication. Reported by: ERNA FIELDS M.D. on 03/27/2023 10:50:00 AM.
--- NOTE | 2023-03-27 | DI.MG.S_ITS ---
BILATERAL DIGITAL SCREENING MAMMOGRAM 3D/2D WITH CAD: 03/27/2023 CLINICAL: Routine screening. Family history of breast cancer. Comparison is made to exams dated: 12/25/2020 mammogram, 01/10/2022 mammogram - [facility], 12/20/2019 mammogram - [facility], 12/09/2019 mammogram, and 09/13/2018 mammogram - [facility]. There are scattered areas of fibroglandular density in both breasts (category b / 25%-50% glandular tissue). Current study was also evaluated with a Computer Aided Detection (CAD) system. There is a biopsy clip in the left breast. No significant masses, calcifications, or other findings are seen in either breast. There has been no significant interval change. IMPRESSION: NEGATIVE There is no mammographic evidence of malignancy. A 1 year screening mammogram is recommended. Based on the Tyrer Cuzick model (a risk assessment model) the patient's lifetime risk is 5.6% and her 10 year risk is 2.0%. According to the ACR, ACS, and NCCN guidelines, an annual breast MRI exam along with mammogram is recommended if the patient's lifetime risk is 20% or greater. This exam was interpreted at Station ID: [id number]. NOTE: For mammograms, a report in lay terms will be sent to the patient. Approximately 15% of breast malignancies will not be visualized mammographically. In the management of a palpable breast mass, a negative mammogram must not discourage biopsy of a clinically suspicious lesion. Electronically Signed By: Bryon valdivia/connie:03/27/2023 17:48:52 letter sent: Normal Exam ACR BI-RADS Category 1: Negative [id number]
== END ==
LOC: RAD 10:10
PROVIDERS: PCP Family Medicine; Referring Provider Student in an Organized Health Care Education/Training Program; Visit Provider Student in an Organized Health Care Education/Training Program
DX: Z12.31 Encounter for screening mammogram for malignant neoplasm of breast (principal); Z80.3 Family history of malignant neoplasm of breast; R92.323 Mammographic fibroglandular density, bilateral breasts; M85.851 Other specified disorders of bone density and structure, right thigh; Z78.0 Asymptomatic menopausal state
CPT/HCPCS: 77063; 77067; 77080

== ENCOUNTER → 2023-04-23 13:15 | Outpatient (CLI) | payer OTHER, SELFPAY ==
[2023-04-23 14:16] LABS: Alanine Aminotransferase 24 IU/L (<35); Albumin 4.7 g/dL (3.5-5.0); Albumin Globulin Ratio 1.6 (1.0-2.8); Alkaline Phosphatase 84 U/L (38-126); Aspartate Aminotransferase 25 IU/L (14-36); BUN Creatinine Ratio 20.9 (6-22); Bilirubin Total 0.6 mg/dL (0.2-1.3); Blood Urea Nitrogen 14 mg/dL (7-17); Calcium 9.6 mg/dL (8.4-10.2); Carbon Dioxide 21 mmol/L (22-32); Chloride 104 mmol/L (98-107); Estimated Glomerular Filt Rate > 60 mL/min (>60); Globulin 2.9 g/dL (1.7-4.1); Glucose 99 mg/dL (70-100); HEMOLYSIS < 15 (0-50); Potassium 4.2 mmol/L (3.4-5.1); Sodium 137 mmol/L (137-145); Total Protein 7.6 g/dL (6.3-8.2)
== END ==
LOC: LAB 13:16
PROVIDERS: PCP Family Medicine; Referring Provider Physician Assistant; Visit Provider Physician Assistant
DX: R79.89 Other specified abnormal findings of blood chemistry (principal)
CPT/HCPCS: 36415; 80053

== ENCOUNTER 2023-04-28 17:33 | Observation (INO) | payer OTHER, SELFPAY ==
[2023-04-28] VITALS (16 sets, daily range): BP systolic 110–147; BP diastolic 69–87; PULSE 77–96; RESP 12–27; TEMP 36.7; O2SAT 97–99; BMI 23.6; BMI 22.9
--- NOTE | 2023-04-28 20:26 | ED.NEUROSD ---
HPI - Neuro Symptoms/Deficit General Chief Complaint: Neuro Symptoms/Deficit Stated Complaint: neurologial issues Time Seen by Provider: 04/28/23 20:06 Source: patient Mode of arrival: Ambulatory History of Present Illness HPI Narrative: 58-year-old woman comes to the ED today with word-finding difficulty. She has had these symptoms intermittently over the past week. She 1st noticed them about 5 days ago where there was a period of 30 or so minutes where she had long pauses in her speech because she could think the word but could not speak the word. She had no dysarthria. Today though symptoms have been present as well though they are not present at the time I am interviewing her. Daughter is in the room and says that she normally is very verbose and speaks many words but today she was having long pauses between attempts to express herself today. No other neurologic findings were noted. No headache no trauma no cough no fever no dysfunction of arms or legs. Normal gait. No nausea vomiting diarrhea no abdominal pain. Significant rhythm disturbances in the past for which she has had cardiac ablation. On Anticoagulants: No Related Data Home Medications Medication Instructions Recorded Confirmed clonazepam 0.5 mg tablet 0.25 mg PO BEDTIME PRN 01/10/20 01/10/20 levonorgestrel 21 mcg/24 hours (8 intrauterine 01/10/20 01/10/20 yrs) 52 mg intrauterine device (Mirena) Previous Rx's Medication Instructions Recorded meclizine 25 mg tablet 25 mg PO BID-TID PRN dizziness #14 03/07/21 tabs ondansetron 4 mg disintegrating 4 mg PO TID-QID PRN nausea and 03/07/21 tablet vomiting #20 tabs promethazine 25 mg rectal 25 mg OR Q6H PRN nausea and 03/07/21 suppository vomiting #12 ea Allergies Allergy/AdvReac Type Severity Reaction Status Date / Time No Known Drug Allergies Allergy Verified 04/28/23 17:40 Review of Systems Hematologic/Lymphatic On Anticoagulants: No Patient History Surgical History History of cardiac radiofrequency ablation (RFA) Social History marital status: household members: spouse lives independently: Yes caregiver/support person: No housing: house education level: college 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[employer]) seatbelt use: always working smoke detector in home: Yes fire extinguisher in home: Yes carbon monox detector in home: Yes do you feel safe at home: Yes Smoking Status: Never smoker second hand exposure: No alcohol intake: current substance use type: does not use Smoking Status: Never smoker alcohol intake frequency: a few times a week Substance Use Type: does not use Exam Narrative Exam Narrative: GENERAL: Alert, cooperative and in no distress. HEAD: Atraumatic. Normocephalic. EYES: Sclera are clear without icterus. Extraocular movements are full. ENT: No rhinorrhea. Mouth exam is benign. NECK: Supple. Full range of motion. CARDIOVASCULAR: Normal rate and rhythm without murmur gallop or rub. RESPIRATORY: Clear to auscultation. Breath sounds equal bilaterally. No wheezes, rales, or rhonchi. GASTROINTESTINAL: Abdomen soft, non-tender, nondistended. EXTREMITIES: No edema, full range of motion. No obvious trauma. NEURO: Nonfocal examination, normal speech, normal gait. NIH stroke score is 0. She has no expressive aphasia while I am examining her. SKIN: No rash or erythema of visible areas PSYCH: Normally oriented. Normal range of affect. Appropriate behavior Initial Vital Signs Initial Vital Signs: Vital Signs Temperature 98.0 F 04/28/23 17:36 Pulse Rate 96 H 04/28/23 17:36 Respiratory Rate 18 04/28/23 17:36 Blood Pressure 132/79 04/28/23 17:36 Pulse Oximetry 99 04/28/23 17:36 Oxygen Delivery Method Room Air 04/28/23 17:36 Course Orders Ordered: ED Orders 04/28/23 17:55 CMP [Comprehensive Metabolic Panel] Stat CRP [C-Reactive Protein Quant] Stat 04/28/23 20:29 CT angio head and neck Stat 04/28/23 21:01 CT head/brain wo con Stat 04/28/23 21:30 CBC Auto Diff [Complete Blood Count AUTO DIFF] Stat Discontinued Medications Aspirin (Aspirin Ec 81 Mg Tablet) 81 mg PO NOW ONE Stop: 04/28/23 22:52 Vital Signs Vital signs: Vital Signs - 8 hr 04/28/23 17:36 04/28/23 18:25 04/28/23 18:26 Temperature 98.0 F Pulse Rate 96 H 92 H 86 Respiratory Rate 18 Blood Pressure 132/79 Pulse Oximetry 99 98 99 Oxygen Delivery Method Room Air 04/28/23 18:26 04/28/23 18:30 04/28/23 18:31 Temperature Pulse Rate 92 H Respiratory Rate 18 Blood Pressure 132/80 134/78 Pulse Oximetry Oxygen Delivery Method 04/28/23 18:40 04/28/23 18:40 04/28/23 19:00 Temperature Pulse Rate 83 80 Respiratory Rate 20 24 Blood Pressure 125/80 Pulse Oximetry 98 97 Oxygen Delivery Method 04/28/23 19:00 04/28/23 19:30 04/28/23 19:30 Temperature Pulse Rate 80 Respiratory Rate 22 Blood Pressure 119/76 116/69 Pulse Oximetry 97 Oxygen Delivery Method 04/28/23 20:00 04/28/23 20:00 04/28/23 20:30 Temperature Pulse Rate 82 79 Respiratory Rate 18 27 H Blood Pressure 116/74 Pulse Oximetry 98 98 Oxygen Delivery Method 04/28/23 21:00 04/28/23 21:24 04/28/23 21:24 Temperature Pulse Rate 77 78 Respiratory Rate 23 12 Blood Pressure 147/80 H Pulse Oximetry 97 98 Oxygen Delivery Method 04/28/23 21:30 04/28/23 21:30 04/28/23 22:00 Temperature Pulse Rate 80 83 Respiratory Rate 20 20 Blood Pressure 128/79 Pulse Oximetry 97 Oxygen Delivery Method 04/28/23 22:00 04/28/23 22:30 04/28/23 22:30 Temperature Pulse Rate 78 Respiratory Rate 22 Blood Pressure 119/80 110/77 Pulse Oximetry Oxygen Delivery Method MDM - Neuro Symptoms/Deficit Lab Data 04/28/23 21:30 04/28/23 17:55 Labs: Lab Results 04/28/23 04/28/23 Range/Units 17:55 21:30 WBC 9.3 (4.5-11.0) X10^3/uL RBC 4.32 (4.0-5.2) X10^6/uL Hgb 13.7 (12.0-16.0) g/dL Hct 40.4 (36-46) % MCV 93.5 (80-100) fL MCH 31.7 (26-34) PG MCHC 33.9 (30-36) % RDW 13.9 (11.6-14.8) % Plt Count 322 (150-400) X10^3/uL Neut % (Auto) 59.6 (50-75) % Lymph % (Auto) 30.9 (25-40) % [place] % (Auto) 7.8 (3-14) % Eos % (Auto) 1.0 L (2-4) % Baso % (Auto) 0.7 (0-2) % Neut # (Auto) 5600 (8009-1078) /uL Lymph # (Auto) 2900 (7659-8224) /uL [place] # (Auto) 700 (0-900) /uL Eos # (Auto) 100 (0-450) /uL Baso # (Auto) 100 (0-100) /uL C-Reactive Protein 0.7 (<1.0) mg/dL Point of Care Testing Glucose POC 81 MDM Narrative Medical decision making narrative: Symptoms of expressive aphasia though not demonstrated here on exam. We will do CT angiography head and neck and a non-con MR brain if available otherwise will admit for further workup overnight. We will check basic labs and ECG as well. ECG obtained at 5:59 p.m. shows sinus rhythm at 88 with a QTC of 464. This ECG is normal. Spoke to Dr. Mckeon who agrees to admit the patient for Dr. Quiroz. Workup is negative to this point. Pending further stroke investigation tomorrow. Discharge Plan Departure Patient Disposition: Admitted As Inpatient Clinical Impression: Transient speech disturbance
--- NOTE | 2023-04-28 20:29 | DI.CT.S_ITS ---
PROCEDURE: CT ANGIO HEAD AND NECK INDICATIONS: Expressive aphasia TECHNIQUE: After the administration of intravenous contrast, 1 mm thick sections acquired from the aortic arch through the Resighini of [place]. 3-dimensional fceaxqh-xrlnmofiv-ojudjpqegx (MIP) and/or volume rendering reformats were acquired of the central intracranial vasculature and neck separately. For radiation dose reduction, the following was used: automated exposure control, adjustment of mA and/or kV according to patient size. COMPARISON: [facility], CT, CT ANGIO HEAD AND NECK, 03/07/2021, 1:38. FINDINGS: Image quality: Diagnostic. BRAIN: CSF spaces: Ventricles are normal in size and shape. Basal cisterns are patent. No extra-axial fluid collections. Brain: No significant abnormality of the brain can be seen. Skull and face: Calvarium and facial bones appear intact, without suspicious lesions. Orbits appear normal. Sinuses: Sinuses and mastoids are clear. HEAD CT ANGIOGRAPHY: Anterior circulation: Intracranial internal carotid arteries are normal in size and flow. The flow within the paired anterior cerebral arteries is normal and symmetric. The flow within the middle cerebral arteries is normal and symmetric. The anterior communicating artery is seen. No aneurysms are seen. Posterior circulation: Visualized portions of the vertebral arteries demonstrate normal caliber, and join to form a normal appearing basilar artery. Flow within the posterior cerebral arteries is normal and symmetric. No aneurysms are seen. NECK CT ANGIOGRAPHY: Carotid system: The great vessels demonstrate a conventional anatomy as they arise from the aortic arch. The origins of the common carotid arteries appear patent. The common carotid arteries demonstrate normal caliber and courses. The bifurcation regions are both widely patent. The internal carotid arteries demonstrate normal calibers and courses. Posterior circulation: The origins of the vertebral arteries both appear widely patent. The more superior extracranial portions of both vertebral arteries also demonstrate normal courses and calibers. They join to form a normal appearing basilar artery. Soft tissues: Visualized neck soft tissues demonstrate no suspicious abnormalities. Bones: No suspicious bony lesions. Visualized cervical spine appears normally aligned. IMPRESSION: No significant intracranial arterial abnormality is seen. No significant abnormality is seen within the arteries of the neck. Any quantitative measurements of stenosis were performed using NASCET criteria. Dictated by: Bryon Gongora M.D. on 04/28/2023 at 22:18 Approved by: Bryon Gongora M.D. on 04/28/2023 at 22:19
[2023-04-28 21:00] LABS: C-Reactive Protein Quant 0.7 mg/dL (<1.0)
--- NOTE | 2023-04-28 21:01 | DI.CT.S_ITS ---
PROCEDURE: CT HEAD/BRAIN WO CON INDICATIONS: Expressive aphasia TECHNIQUE: Noncontrast 4.5 mm thick angled axial sections acquired from the foramen magnum to the vertex, with coronal and sagittal reformats. For radiation dose reduction, the following was used: automated exposure control, adjustment of mA and/or kV according to patient size. COMPARISON: [facility], CT, CT HEAD/BRAIN WO CON, 03/07/2021, 0:42. FINDINGS: Image quality: Diagnostic. CSF spaces: Basal cisterns are patent. No extra-axial fluid collections. Ventricles are normal in size and shape. Brain: No midline shift. No intracranial masses or hemorrhage. Nuñez-white matter interface is normal. Skull and face: Calvarium and visualized facial bones are intact, without suspicious lesions. Sinuses: Visualized sinuses and mastoids are clear. IMPRESSION: No acute intracranial pathology. Dictated by: Bryon Gongora M.D. on 04/28/2023 at 22:16 Approved by: Bryon Gongora M.D. on 04/28/2023 at 22:17
[2023-04-28 21:41] LABS: Add Manual Diff / Slide Review NO; Basophils Absolute Auto 100 /uL (0-100); Basophils Percent Auto 0.7 % (0-2); Eosinophils Absolute Auto 100 /uL (0-450); Hematocrit 40.4 % (36-46); Hemoglobin 13.7 g/dL (12.0-16.0); Lymphocytes Absolute Auto 2900 /uL (1100-4500); Lymphocytes Percent Auto 30.9 % (25-40); Mean Corpuscular HGB Conc 33.9 % (30-36); Mean Corpuscular Hemoglobin 31.7 PG (26-34); Mean Corpuscular Volume 93.5 fL (80-100); Monocytes Absolute Auto 700 /uL (0-900); Monocytes Percent Auto 7.8 % (3-14); Neutrophils Absolute Auto 5600 /uL (1500-7000); Neutrophils Percent Auto 59.6 % (50-75); Platelet Count 322 X10^3/uL (150-400); Red Blood Cell Count 4.32 X10^6/uL (4.0-5.2); Red Cell Distribution Width 13.9 % (11.6-14.8); White Blood Cell Count 9.3 X10^3/uL (4.5-11.0)
[2023-04-28] MEDS: ASPIRIN EC 81 MG TABLET PO (22:57)
[2023-04-28 23:09] LABS: Alanine Aminotransferase 33 IU/L (<35); Albumin 5.2 g/dL (3.5-5.0); Albumin Globulin Ratio 1.5 (1.0-2.8); Alkaline Phosphatase 95 U/L (38-126); Aspartate Aminotransferase 44 IU/L (14-36); BUN Creatinine Ratio 22.2 (6-22); Bilirubin Total 1.2 mg/dL (0.2-1.3); Blood Urea Nitrogen 18 mg/dL (7-17); Calcium 10.1 mg/dL (8.4-10.2); Carbon Dioxide 20 mmol/L (22-32); Chloride 104 mmol/L (98-107); Estimated Glomerular Filt Rate > 60 mL/min (>60); Globulin 3.4 g/dL (1.7-4.1); Glucose 84 mg/dL (70-100); Potassium 4.6 mmol/L (3.4-5.1); Sodium 141 mmol/L (137-145); Total Protein 8.6 g/dL (6.3-8.2)
[2023-04-28 23:10] LABS: HEMOLYSIS 112 (0-50)
[2023-04-29] MEDS: LORazepam 0.5 MG TABLET PO ×2 (00:23→09:04)
--- NOTE | 2023-04-29 00:40 | PC.NURSE ---
Admitted to room 216, no neuro deficit noted. C/O insomnia 0.5 mg. PO Lorazepam administered. Oriented to her room, call light, independent with mobility & denies any dizziness & pain. Will continue POC & monitor.
[2023-04-29 01:05] VITALS: BP 129/79; PULSE 78; RESP 20; TEMP 36.4; O2SAT 98
--- NOTE | 2023-04-29 04:16 | PC.NURSE ---
Did not C/O pain, dizziness & other discomfort. Did not sleep much at all even with 0.5 mg. PO Lorazepam administered @ 0023. She stated I can't sleep if it's not my own bed. Offered warm milk or chamomile tea she declined. Given 2 warm blankets & encouraged to get some sleep. Will monitor.
[2023-04-29 05:00] VITALS: BP 98/64; PULSE 87; RESP 18; TEMP 36.7; O2SAT 97
--- NOTE | 2023-04-29 06:00 | DI.MRI.S_ITS ---
PROCEDURE: MR HEAD/BRAIN WO CON INDICATIONS: TIA TECHNIQUE: Noncontrast axial T1 spin echo, axial T2 fast spin echo, sagittal and axial FLAIR, coronal T2 fast spin echo, axial gradient echo, axial diffusion and ADC through the brain. COMPARISON: [facility], CT, CT HEAD/BRAIN WO CON, 04/28/2023, 21:18. [facility], CT, CT ANGIO HEAD AND NECK, 04/28/2023, 21:18. FINDINGS: Image quality: Excellent. CSF Spaces: Basal cisterns are patent. No extra-axial fluid collections. Ventricles are normal in size and shape. Brain: No intracranial masses or hemorrhage. Nuñez/white matter interface is normal. Brainstem appears normal. A few scattered foci of T2 weighted hyperintensity can be seen within the periventricular and deep white matter, which are statistically most likely related to chronic small vessel ischemic change in a patient of this age. Diffusion-weighted images demonstrate no acute infarct. No chronic ischemic insults. Normal intravascular flow voids are present. Skull and face: Calvarium has normal marrow signal. Orbits appear normal. Sinuses: Sinuses and mastoids are clear. IMPRESSION: No findings of acute or subacute infarction can be seen. Dictated by: Rogelio Moore M.D. on 04/29/2023 at 9:46 Approved by: Rogelio Moore M.D. on 04/29/2023 at 9:47
--- NOTE | 2023-04-29 08:56 | DI.ECHO.S_ITS ---
[facility] +---------+ : : [address] : : : : [id number] : : : : Phone: [phone]+ Echocardiogram Report + + :Name: KYRIE ESTRADA Study Date: 04/29/2023 Height: 65 in : :[facility] ReadingLocation: Weight: 138 lb: : Gender: Female BSA: 1.7 m2 : :: 1965 Age: 58 yrs : :Reason For Study: TIA : :Ordering Physician: ROBERT, : :SERENA Performed By: Krista [place] : :Referring: SERENA JONES : + + Interpretation Summary The patient was in sinus rhythm with heart rates between 64-83 bpm during the exam. The left ventricle is normal in size and wall thickness. There is no obvious LV thrombus. The left ventricular ejection fraction is normal. The ejection fraction is estimated to be 60-65%. The right ventricle is normal in size and function. Injection of contrast documented no interatrial shunt. No significant valvular pathology seen. The IVC is of normal diameter and collapses greater than 50% with a sniff. This suggests a low right atrial pressure of 3 mm Hg. Mild atherosclerotic plaque(s) in the aortic arch. Procedure: A two-dimensional transthoracic echocardiogram with color flow and Doppler was performed. The study quality was technically adequate. Comparison is made with the echocardiogram of 11/03/2014. The patient was in sinus rhythm with heart rates between 64-83 bpm during the exam. Left Ventricle: The left ventricle is normal in size and wall thickness. There is no thrombus. The ejection fraction is estimated to be 60-65%. The left ventricular ejection fraction is normal. There are no focal wall motion abnormalities. Diastolic parameters suggest probable normal left ventricular diastolic function and normal filling pressures. Right Ventricle: The right ventricle is normal in size and function. Atria: The left atrial size is normal. Right atrial size is normal. There is no Doppler evidence for an interatrial shunt. Injection of contrast documented no interatrial shunt. Mitral Valve: There is a flat closure plane of the the mitral valve leaflets. There is mild mitral regurgitation. Aortic Valve: The aortic valve is trileaflet. The aortic valve opens well. There is no aortic valve stenosis. No aortic regurgitation is present. Tricuspid Valve: The tricuspid valve is normal in structure and function. There is trace tricuspid regurgitation. The right ventricular systolic pressure is estimated to be at least 21 mmHg based on an estimated right atrial pressure of 3 mm Hg. Pulmonic Valve: The pulmonic valve leaflets are thin and pliable; valve motion is normal. There is mild pulmonic regurgitation. Great Vessels: The aortic root is normal size. The dimensions of the ascending aorta are normal. Mild atherosclerotic plaque(s) in the aortic arch. The IVC is of normal diameter and collapses greater than 50% with a sniff. This suggests a low right atrial pressure of 3 mm Hg. Pericardium/ Pleura There is no pericardial effusion. There is no pleural effusion. MMode/2D Measurements & Calculations LVIDd: 4.7 cm LVOT diam: 2.0 cm LVIDs: 2.6 cm Ao root diam: 2.8 cm FS: 43.8 % asc Aorta Diam: 2.8 cm IVSd: 0.57 cm Ao Arch Diam (Prox Trans): 2.4 cm LVPWd: 0.83 cm LV henry. diameter/BSA (cm/m^2): 2.8 LV sys. diameter/BSA (cm/m^2): 1.6 LA A2 area: 14.1 cm2 RA long axis: 4.6 cm LA A4 area: 12.0 cm2 RA area: 13.0 cm2 LA length (vol): 4.2 cm RA vol: 31.5 ml LA vol: 33.7 ml RA : 18.6 ml/m2 LA vol index: 19.9 ml/m2 IVC diam: 1.3 cm RVD1 (basal): 3.4 cm RVD2 (mid): 2.6 cm TAPSE: 2.3 cm Doppler Measurements & Calculations Ao V2 max: 121.3 cm/sec LVOT Max Gagan: 98.1 cm/sec Ao V2 mean: 84.6 cm/sec LV V1 max P.9 mmHg Ao max P.9 mmHg LV V1 VTI: 19.2 cm Ao mean P.2 mmHg FRANCIS(I,D): 2.4 cm2 Ao V2 VTI: 24.8 cm FRANCIS(V,D): 2.5 cm2 sev ratio: 0.77 FRANCIS indexed to BSA (cm^2/m^2): 1.4 MV E max gagan: 61.2 cm/sec TR max gagan: 210.9 cm/sec MV A max gagan: 54.6 cm/sec TR max P.8 mmHg MV E/A: 1.1 PA V2 max: 73.2 cm/sec Med Peak E' Gagan: 7.7 cm/sec PA V2 mean: 51.7 cm/sec E/E' med: 8.0 PA mean P.2 mmHg Lat Peak E' Gagan: 8.8 cm/sec PA pr(Accel): 27.6 mmHg E/E' lat: 7.0 E/e' average: 7.5 MV dec time: 0.19 sec SV(LVOT): 60.1 ml Reading Physician:02:02 PM
--- NOTE | 2023-04-29 08:57 | PM.HP.1 ---
History of Present Illness History of Present Illness Date Patient Seen: 04/29/23 Chief complaint: neurologial issues Narrative: The pt is a 58yo woman without any significant medical history who presented with expressive aphasia. The pt reports that yesterday afternoon she was on the phone with her daughter when she found she could not find the right words to say. She knew what she wanted to say, but not how to say it. The pt tried to work around it and use other words, but her daughter noticed that she was tapering off mid-sentence and not finishing her thoughts. This lasted for nearly 45 minutes and then self-resolved. The pt reports this has happened 4 times in the last 2 weeks, but all other episodes were very brief. She denies any other focal neurological symptoms. She denies any recent weakness, significant lightheadedness, numbness/tingling, facial droop. She has otherwise been feeling well. 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[employer]) seatbelt use: always working smoke detector in home: Yes fire extinguisher in home: Yes carbon monox detector in home: Yes do you feel safe at home: Yes Smoking Status: Never smoker second hand exposure: No alcohol intake: current substance use type: does not use Meds Home Medications and Allergies Home Medications Medication Instructions Recorded Confirmed Type clonazepam 0.5 mg tablet 0.25 mg PO BEDTIME PRN Insomnia 01/10/20 04/29/23 History Allergies Allergy/AdvReac Type Severity Reaction Status Date / Time No Known Drug Allergies Allergy Verified 04/28/23 17:40 Exam Vital Signs (past 8 hours): - 04/29/23 01:05 04/29/23 05:00 Temperature 97.5 F L 98.1 F Pulse Rate 78 87 Respiratory Rate 20 18 Blood Pressure 129/79 98/64 Pulse Oximetry 98 97 Oxygen Flow Rate 0 0 Oxygen Delivery Method Room Air Oxygen Flow Rate 0 Objective Labs 04/28/23 21:30 04/28/23 17:55 Labs: Laboratory Results - last 24 hr 04/28/23 04/28/23 17:55 21:30 WBC 9.3 RBC 4.32 Hgb 13.7 Hct 40.4 MCV 93.5 MCH 31.7 MCHC 33.9 RDW 13.9 Plt Count 322 Neut % (Auto) 59.6 Lymph % (Auto) 30.9 Quay % (Auto) 7.8 Eos % (Auto) 1.0 L Baso % (Auto) 0.7 Neut # (Auto) 5600 Lymph # (Auto) 2900 [place] # (Auto) 700 Eos # (Auto) 100 Baso # (Auto) 100 Sodium 141 Potassium 4.6 Chloride 104 Carbon Dioxide 20 L BUN 18 H Creatinine 0.81 Estimated GFR > 60 BUN/Creatinine Ratio 22.2 H Glucose 84 Calcium 10.1 Total Bilirubin 1.2 AST 44 H ALT 33 Alkaline Phosphatase 95 C-Reactive Protein 0.7 Total Protein 8.6 H Albumin 5.2 H Globulin 3.4 Albumin/Globulin Ratio 1.5 Assessment & Plan Assessment & Plan narrative: The pt is a 58yo woman without any significant medical history who presented with expressive aphasia. No significant risk factors for TIA/CVA. Pt now completely asymptomatic. Pt had CT/CTA in the ED that was negative, now with normal MRI of the head as well. Telemetry remains reassuring without arrhythmia. Echo was without acute findings as well. Discussed risks of recurrence with the patient. She will f/u with Neurology as an outpatient. Discussed potential baby aspirin with the pt, she will consider. Quality VTE Deep Vein Thrombosis/Pulmonary Embolism Present on Admission: No
[2023-04-29 09:00] VITALS: BP 112/69; PULSE 71; RESP 16; TEMP 36.8; O2SAT 97
[2023-04-29] MEDS: SODIUM CHLORIDE 0.9% FLUSH 10 ML IV (09:04)
--- NOTE | 2023-04-29 11:46 | CM.DANOTE ---
Initial DCP Assessment Note Pt is a 58 yo female, resident of [place], arrives with word finding difficulties, admitted OBS for work up. Patient may be cleared for discharge home later today or tomorrow depending on findings. PCP: Chayito Melissa Payer: Adryan Reviewed chart, pt discussed in multidisciplinary rounds this morning. Met w/patient, introduced self and role. Patient is indp and active, works at as an MA-C. Patient's spouse is currently out of town, although her daughter Isabella Little P [phone] is available to transport patient home and monitor/assist as needed. No barriers identified at this time to patient's safe discharge home w/family to assist; close outpatient f/u recommended. CM team will plan to follow closely in case any DC needs or concerns arise. IDALMIS Davidson Discharge Planning/Care Management CM Discharge Assessment Start: 04/29/23 11:45 Freq: Status: Active Protocol: Document 04/29/23 11:45 ROBERT (Rec: 04/29/23 11:46 ROBERT [id number]) Discharge Planning Assessment Assigned Orderlies Teacher IDALMIS Barber DPOA/Assigned Designee Name Yordy Little, spouse (out of town currently) Contact Information [phone] Advance Directives? Yes Advance Directives on File No History Provided By Patient,Family Member Prior Living Arrangements House Household Members spouse,children Type of transporation used prior to Drives own vehicle admit Independent with ADL's Yes Is patient alert and oriented? Yes Barriers to Discharge No Discharge Plan Home Transportation Arrangement Family Referrals Initiated None needed Whiteboard Updated in Patient Room with Yes name and ext. # of Orderlies Teacher
--- NOTE | 2023-04-29 13:42 | PC.NURSE ---
Pt is dressed and ready for discharge home with daughter. IV has been removed. Went over d/c instructions with Pt - discussed d/c meds, time of last dose, reviewed stroke education, and follow up. Pt denies further questions and was taken out via w/c by ADMINISTRATIVE PROJECT COORDINATOR to POV with daughter and all belongings.
== END 2023-04-29 13:44 | disposition home or self-care (01) ==
LOC: ED 22:52 → AC 23:08
PROVIDERS: Admitting Provider Family Medicine; Emergency Provider Family Medicine Addiction Medicine; PCP Family Medicine; Referring Provider Family Medicine Addiction Medicine; Visit Provider Family Medicine
DX: R47.01 Aphasia (principal)
CPT/HCPCS: 70450; 70496; 70498; 70551; 80053; 82962; 85025; 86140; 93005; 93306; 99284; G0378; Q9967

== ENCOUNTER 2023-05-04 12:19 | Emergency (ER) | payer OTHER, SELFPAY ==
[2023-04-28 23:50] VITALS: BMI 22.9
[2023-05-04] VITALS (20 sets, daily range): BP systolic 94–139; BP diastolic 63–84; PULSE 61–88; RESP 18; TEMP 36.3; O2SAT 91–100; BMI 22.9
--- NOTE | 2023-05-04 12:31 | ED.NEUROSD ---
HPI - Neuro Symptoms/Deficit <Awa Bhandari MD - Last Filed: 05/04/23 19:12> General Chief Complaint: Neuro Symptoms/Deficit Stated Complaint: syptoms of TIA Time Seen by Provider: 05/04/23 12:31 Source: patient Mode of arrival: Ambulatory History of Present Illness HPI Narrative: 58-year-old woman who is admitted to the hospital on April 28 with concerns for TIA/stroke. Workup including head and neck CTA, head CT, MRI, echocardiogram were all unremarkable. She has been taking baby aspirin every other day for prevention. She has no history of hypertension or hyperlipidemia. She exercises regularly in fact was at the gym today and around 1130 noted word-finding difficulties and expressive aphasia symptoms similar to those that led to her hospital admission last week. On Anticoagulants: No Related Data Home Medications Medication Instructions Recorded Confirmed clonazepam 0.5 mg tablet 0.25 mg PO BEDTIME PRN Insomnia 01/10/20 04/29/23 Previous Rx's Medication Instructions Recorded atorvastatin 10 mg tablet 10 mg PO DAILY #90 tabs 05/04/23 atorvastatin 10 mg tablet 10 mg PO DAILY #90 tabs 05/04/23 Allergies Allergy/AdvReac Type Severity Reaction Status Date / Time No Known Drug Allergies Allergy Verified 05/04/23 12:28 Review of Systems <Awa Bhandari MD - Last Filed: 05/04/23 19:12> Review of Systems Narrative: Pertinent positive and negative findings as per HPI Hematologic/Lymphatic On Anticoagulants: No Patient History <Awa Bhandari MD - Last Filed: 05/04/23 19:12> Surgical History (Updated 05/04/23 @ 17:46 by Awa Bhandari MD) History of cardiac radiofrequency ablation (RFA) Social History marital status: household members: spouse and children lives independently: Yes caregiver/support person: No housing: house education level: college 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[employer]) seatbelt use: always working smoke detector in home: Yes fire extinguisher in home: Yes carbon monox detector in home: Yes do you feel safe at home: Yes Smoking Status: Never smoker second hand exposure: No alcohol intake: current substance use type: does not use Smoking Status: Never smoker alcohol intake frequency: a few times a week Substance Use Type: does not use Exam <Awa Bhandari MD - Last Filed: 05/04/23 19:12> Initial Vital Signs Initial Vital Signs: Vital Signs Temperature 97.3 F L 05/04/23 12:23 Pulse Rate 72 05/04/23 12:23 Respiratory Rate 18 05/04/23 12:23 Blood Pressure 129/77 05/04/23 12:23 Pulse Oximetry 98 05/04/23 12:23 Oxygen Delivery Method Room Air 05/04/23 12:23 General: Healthy appearing, in no acute distress. Able to give a complete and coherent history. Well-nourished well-developed HEENT: Moist mucous membranes, normal sclera with reactive pupils, Neck: No cervical adenopathy Respiratory: Lungs are clear to auscultation, no wheezing no rales no rhonchi. Full and symmetrical air movement Cardiac: Regular rate and rhythm no murmurs no bruits Abdomen: Soft, nontender, good bowel tones, no flank pain Skin: Warm and dry, no rashes Neurologic: Grossly neurologically intact with no obvious asymmetries or abnormalities. Normal speech fluency and word finding. Extremities: No trauma, well perfused Psych: Cooperative, appropriate insight and affect NIH score = 0 <Kirt Howell DO - Last Filed: 05/05/23 00:33> Initial Vital Signs Initial Vital Signs: Vital Signs Temperature 97.3 F L 05/04/23 12:23 Pulse Rate 72 05/04/23 12:23 Respiratory Rate 18 05/04/23 12:23 Blood Pressure 129/77 05/04/23 12:23 Pulse Oximetry 98 05/04/23 12:23 Oxygen Delivery Method Room Air 05/04/23 12:23 Course <Awa Bhandari MD - Last Filed: 05/04/23 19:12> Orders Ordered: Discontinued Medications Lorazepam (Lorazepam 2 Mg/Ml Inj) 1 mg IV NOW ONE Stop: 05/04/23 13:10 Last Admin: 05/04/23 17:26 Dose: 1 mg Documented By: CHARLENE Vital Signs Vital signs: Vital Signs - 8 hr 05/04/23 17:00 05/04/23 17:00 05/04/23 17:27 Pulse Rate 79 81 Blood Pressure 114/73 Pulse Oximetry 98 96 Oxygen Delivery Method 05/04/23 17:27 05/04/23 17:32 05/04/23 18:31 Pulse Rate 88 Blood Pressure 110/71 Pulse Oximetry 97 91 Oxygen Delivery Method 05/04/23 18:32 05/04/23 18:32 05/04/23 19:00 Pulse Rate 88 81 Blood Pressure 136/80 Pulse Oximetry 98 95 Oxygen Delivery Method Room Air 05/04/23 19:00 Pulse Rate Blood Pressure 94/63 Pulse Oximetry Oxygen Delivery Method <Kirt Howell DO - Last Filed: 05/05/23 00:33> Orders Ordered: Discontinued Medications Lorazepam (Lorazepam 2 Mg/Ml Inj) 1 mg IV NOW ONE Stop: 05/04/23 13:10 Last Admin: 05/04/23 17:26 Dose: 1 mg Documented By: CHARLENE Vital Signs Vital signs: Vital Signs - 8 hr 05/04/23 17:00 05/04/23 17:00 05/04/23 17:27 Pulse Rate 79 81 Blood Pressure 114/73 Pulse Oximetry 98 96 Oxygen Delivery Method 05/04/23 17:27 05/04/23 17:32 05/04/23 18:31 Pulse Rate 88 Blood Pressure 110/71 Pulse Oximetry 97 91 Oxygen Delivery Method 05/04/23 18:32 05/04/23 18:32 05/04/23 19:00 Pulse Rate 88 81 Blood Pressure 136/80 Pulse Oximetry 98 95 Oxygen Delivery Method Room Air 05/04/23 19:00 Pulse Rate Blood Pressure 94/63 Pulse Oximetry Oxygen Delivery Method MDM - Neuro Symptoms/Deficit <Awa Bhandari MD - Last Filed: 05/04/23 19:12> Lab Data 05/04/23 13:16 05/04/23 13:16 Labs: Lab Results 05/04/23 Range/Units 13:16 WBC 8.3 (4.5-11.0) X10^3/uL RBC 4.73 (4.0-5.2) X10^6/uL Hgb 14.8 (12.0-16.0) g/dL Hct 44.1 (36-46) % MCV 93.3 (80-100) fL MCH 31.2 (26-34) PG MCHC 33.5 (30-36) % RDW 13.8 (11.6-14.8) % Plt Count 345 (150-400) X10^3/uL Neut % (Auto) 67.0 (50-75) % Lymph % (Auto) 25.7 (25-40) % Alfalfa % (Auto) 6.0 (3-14) % Eos % (Auto) 0.5 L (2-4) % Baso % (Auto) 0.8 (0-2) % Neut # (Auto) 5600 (4047-5547) /uL Lymph # (Auto) 2100 (2395-5942) /uL Alfalfa # (Auto) 500 (0-900) /uL Eos # (Auto) 0 (0-450) /uL Baso # (Auto) 100 (0-100) /uL Sodium 140 (137-145) mmol/L Potassium 4.6 (3.4-5.1) mmol/L Chloride 106 (98-107) mmol/L Carbon Dioxide 20 L (22-32) mmol/L BUN 14 (7-17) mg/dL Creatinine 0.72 (0.52-1.04) mg/dL Estimated GFR > 60 (>60) mL/min BUN/Creatinine Ratio 19.4 (6-22) Glucose 89 (70-100) mg/dL Hemoglobin A1c 5.3 (4.0-6.0) % Calcium 9.6 (8.4-10.2) mg/dL Total Bilirubin 1.1 (0.2-1.3) mg/dL AST 35 (14-36) IU/L ALT 27 (<35) IU/L Alkaline Phosphatase 85 (38-126) U/L Total Protein 8.7 H (6.3-8.2) g/dL Albumin 5.0 (3.5-5.0) g/dL Globulin 3.7 (1.7-4.1) g/dL Albumin/Globulin Ratio 1.4 (1.0-2.8) Point of Care Testing Glucose POC 90 Urine Dip Bedside Urine Glucose Negative Bedside Urine Bilirubin - Negative Bedside Urine Ketone - Negative Urine Specific [place] 1.005 Bedside Urine Occult Blood - Negative Bedside Urine pH 7.0 Bedside Urine Protein - Negative Bedside Urine Urobilinogen - Negative Bedside Urine Nitrite - Negative Bedside Urine Leukocytes - Negative Esterase MDM Narrative Medical decision making narrative: CC: Recurrent episode of 1 hour of word-finding difficulty with slowed speech and a sensation of brain fog. Onset 11 30 this morning completely resolved by time of arrival in the emergency department Complicating co-morbidities: Prior episode 1 week ago with admission, hospital workup with CT, CTA, MRI, echo with bubble study currently taking 81 mg of aspirin every other day Data collected from: patient, Medical records reviewed: Hospital admission for similar findings on April 29, 2023 reviewed Differential considered: TIA, stroke, seizure Exam documented above, pertinent findings include: Exam is completely back to baseline now, NIH score is 0 Lab Test results independently reviewed as above. Pertinent findings: CBC is unremarkable Chemistries are reassuring Hemoglobin A1c is 5.3 Lipid panel from January 02, 2023 shows Total cholesterol 205, LDL cholesterol 103, HDL at 83 triglycerides of 94. Given her probable TIA current recommendations for LDL are below 70 Imaging studies independently reviewed: CT, CTA and MRI done with hospital admission last week are reviewed. Consultations: Extensive discussion with stroke neurology [facility], Dr. Edward. Her recommendation was to go ahead and repeat a brain MR with and without today. Assuming that does not show any acute findings felt that discharge home with instructions to increase her aspirin to 81 mg daily, start atorvastatin at 10 mg with an LDL goal of less than 70, keep her follow up appointment that is currently being scheduled with neurologist, discuss EEG with neurologist. Also recommended an outpatient cardiac event monitor as a complete a portion of the entire workup. Treatments: 1 mg of IV Ativan prior to MRI for sedation Discussion: 58-year-old woman with an hour episode this morning of word-finding difficulties speech fluency problems and ?brain fog?. Similar episode a week ago with negative workup at that time. In consultation with stroke Neurology Service with the [facility] MRI with and without contrast of the brain has been ordered. This is anticipated to happened around 6:00 p.m. this evening. ABCD2 score is 2 MRI shows no acute findings. Patient is safe for discharge. Please see recommendations outlined in discharge instructions below. All questions are answered and patient is safe for home discharge <Kirt Howell, - Last Filed: 05/05/23 00:33> Lab Data Labs: Lab Results 05/04/23 Range/Units 13:16 WBC 8.3 (4.5-11.0) X10^3/uL RBC 4.73 (4.0-5.2) X10^6/uL Hgb 14.8 (12.0-16.0) g/dL Hct 44.1 (36-46) % MCV 93.3 (80-100) fL MCH 31.2 (26-34) PG MCHC 33.5 (30-36) % RDW 13.8 (11.6-14.8) % Plt Count 345 (150-400) X10^3/uL Neut % (Auto) 67.0 (50-75) % Lymph % (Auto) 25.7 (25-40) % Alfalfa % (Auto) 6.0 (3-14) % Eos % (Auto) 0.5 L (2-4) % Baso % (Auto) 0.8 (0-2) % Neut # (Auto) 5600 (2693-0303) /uL Lymph # (Auto) 2100 (8477-1480) /uL Alfalfa # (Auto) 500 (0-900) /uL Eos # (Auto) 0 (0-450) /uL Baso # (Auto) 100 (0-100) /uL Sodium 140 (137-145) mmol/L Potassium 4.6 (3.4-5.1) mmol/L Chloride 106 (98-107) mmol/L Carbon Dioxide 20 L (22-32) mmol/L BUN 14 (7-17) mg/dL Creatinine 0.72 (0.52-1.04) mg/dL Estimated GFR > 60 (>60) mL/min BUN/Creatinine Ratio 19.4 (6-22) Glucose 89 (70-100) mg/dL Hemoglobin A1c 5.3 (4.0-6.0) % Calcium 9.6 (8.4-10.2) mg/dL Total Bilirubin 1.1 (0.2-1.3) mg/dL AST 35 (14-36) IU/L ALT 27 (<35) IU/L Alkaline Phosphatase 85 (38-126) U/L Total Protein 8.7 H (6.3-8.2) g/dL Albumin 5.0 (3.5-5.0) g/dL Globulin 3.7 (1.7-4.1) g/dL Albumin/Globulin Ratio 1.4 (1.0-2.8) Point of Care Testing Glucose POC 90 Urine Dip Bedside Urine Glucose Negative Bedside Urine Bilirubin - Negative Bedside Urine Ketone - Negative Urine Specific [place] 1.005 Bedside Urine Occult Blood - Negative Bedside Urine pH 7.0 Bedside Urine Protein - Negative Bedside Urine Urobilinogen - Negative Bedside Urine Nitrite - Negative Bedside Urine Leukocytes - Negative Esterase MDM Narrative Medical decision making narrative: CC: Recurrent episode of 1 hour of word-finding difficulty with slowed speech and a sensation of brain fog. Onset 02 05 this morning completely resolved by time of arrival in the emergency department Complicating co-morbidities: Prior episode 1 week ago with admission, hospital workup with CT, CTA, MRI, echo with bubble study currently taking 81 mg of aspirin every other day Data collected from: patient, Medical records reviewed: Hospital admission for similar findings on April 29, 2023 reviewed Differential considered: TIA, stroke, seizure Exam documented above, pertinent findings include: Exam is completely back to baseline now, NIH score is 0 Lab Test results independently reviewed as above. Pertinent findings: CBC is unremarkable Chemistries are reassuring Hemoglobin A1c is 5.3 Lipid panel from January 02, 2023 shows Total cholesterol 205, LDL cholesterol 103, HDL at 83 triglycerides of 94. Given her probable TIA current recommendations for LDL are below 70 Imaging studies independently reviewed: CT, CTA and MRI done with hospital admission last week are reviewed. Consultations: Extensive discussion with stroke neurology [facility], Dr. Edward. Her recommendation was to go ahead and repeat a brain MR with and without today. Assuming that does not show any acute findings felt that discharge home with instructions to increase her aspirin to 81 mg daily, start atorvastatin at 10 mg with an LDL goal of less than 70, keep her follow up appointment that is currently being scheduled with neurologist, discuss EEG with neurologist. Also recommended an outpatient cardiac event monitor as a complete a portion of the entire workup. Treatments: 1 mg of IV Ativan prior to MRI for sedation Discussion: 58-year-old woman with an hour episode this morning of word-finding difficulties speech fluency problems and ?brain fog?. Similar episode a week ago with negative workup at that time. In consultation with stroke Neurology Service with the [facility] MRI with and without contrast of the brain has been ordered. This is anticipated to happened around 6:00 p.m. this evening. ABCD2 score is 2 MRI shows no acute findings. Patient is safe for discharge. Please see recommendations outlined in discharge instructions below. All questions are answered and patient is safe for home discharge Dr Howell: I had no clinical interaction with this patient. She was initially turned over to myself however MRI resulted and Dr. Bhandari continued care of the patient and discharged home. This note was signed by myself for administrative purposes due to an EMR issue that does not allow me to remove it from my work list. Discharge Plan Departure Patient Disposition: Home Clinical Impression: Brain TIA Instructions: DI for Transient Ischemic Attack Activity Restrictions/Additional Instructions: Thank you for coming in today Your brain MR today did not show any acute findings. In light of the fact that you are in the hospital last week with full workup including head CT, CTA, brain MRI and echocardiogram hospitalization at this time is not indicated. In discussion with Dr. Edward stroke neurologist at the [facility] her recommendations are as follows: -Baby aspirin daily -10 mg of atorvastatin daily with a LDL goal of less than 70. The cholesterol medication has secondary effects in reducing stroke beyond just the cholesterol lowering. Your cholesterol numbers are otherwise excellent. -keep your neurology follow-up. When talking with the neurologist, ask about need for or appropriateness of an EEG to rule out seizures -to finish the entire workup, having an outpatient cardiac event monitor to make sure that there is no brief arrhythmias we will be appropriate. Please talk to your linen tech about this If you find that you are getting worse or develop any new symptoms, please feel free to return to the emergency department for further evaluation. Prescriptions: New atorvastatin 10 mg tablet 10 mg PO DAILY Qty: 90 0RF atorvastatin 10 mg tablet 10 mg PO DAILY Qty: 90 0RF No Action clonazepam 0.5 mg tablet 0.25 mg PO BEDTIME PRN (Reason: Insomnia) Rx Instructions: administer 30 minutes before bedtime Referrals: Chayito Melissa MD [Primary Care Provider] - Stand Alone Forms: Patient Portal/API
--- NOTE | 2023-05-04 12:39 | PC.NURSE ---
Pt came to the ED today because she is having recurrent episodes of expressive aphasia. Pt was seen in the ED last week for the same complaint. Pt a&ox4, speaking in full sentences, and speech is clear and coherent. Pt ambulated to bathroom with steady gait and denies having any pain at this time.
--- NOTE | 2023-05-04 12:56 | DI.MRI.S_ITS ---
PROCEDURE: MR HEAD/BRAIN WO/W CON INDICATIONS: TIA TECHNIQUE: Noncontrast axial T1 spin echo, axial T2 fast spin echo, sagittal and axial FLAIR, coronal T2 fast spin echo, axial gradient echo, axial diffusion and ADC through the brain. After the administration of contrast, axial and coronal and sagittal 3D VIBE or T1 spin echo with fat saturation through the brain. COMPARISON: [facility], CT, CT HEAD/BRAIN WO CON, 04/28/2023, 21:18. [facility], CT, CT ANGIO HEAD AND NECK, 04/28/2023, 21:18. [facility], MR, MR HEAD/BRAIN WO CON, 04/29/2023, 9:51. FINDINGS: Image quality: Excellent. CSF Spaces: Basal cisterns are patent. No extra-axial fluid collections. Ventricles are normal in size and shape. Brain: No midline shift. No intracranial bleeds or masses. No abnormal intracranial enhancement. The brainstem appears normal. Diffusion-weighted images demonstrate no acute infarct. No chronic ischemic insults. Normal intravascular flow voids are present. Relatively prominent perivascular spaces are noted. Skull and face: Calvarial marrow is normal in signal. Orbits appear normal. Sinuses: Sinuses and mastoids appear clear. IMPRESSION: Negative for interval infarction. No significant intracranial MRI abnormality is seen. No masses or abnormal enhancement can be seen. Dictated by: Rogelio Moore M.D. on 05/04/2023 at 18:00 Approved by: Rogelio Moore M.D. on 05/04/2023 at 18:01
[2023-05-04 13:25] LABS: Add Manual Diff / Slide Review NO; Basophils Absolute Auto 100 /uL (0-100); Basophils Percent Auto 0.8 % (0-2); Eosinophils Absolute Auto 0 /uL (0-450); Eosinophils Percent Auto 0.5 % (2-4); Hematocrit 44.1 % (36-46); Hemoglobin 14.8 g/dL (12.0-16.0); Lymphocytes Absolute Auto 2100 /uL (1100-4500); Lymphocytes Percent Auto 25.7 % (25-40); Mean Corpuscular HGB Conc 33.5 % (30-36); Mean Corpuscular Hemoglobin 31.2 PG (26-34); Mean Corpuscular Volume 93.3 fL (80-100); Monocytes Absolute Auto 500 /uL (0-900); Neutrophils Absolute Auto 5600 /uL (1500-7000); Platelet Count 345 X10^3/uL (150-400); Red Blood Cell Count 4.73 X10^6/uL (4.0-5.2); Red Cell Distribution Width 13.8 % (11.6-14.8); White Blood Cell Count 8.3 X10^3/uL (4.5-11.0)
[2023-05-04 13:36] LABS: Hemoglobin A1C% w Est Avg Glu 5.3 % (4.0-6.0)
[2023-05-04 13:37] LABS: Alanine Aminotransferase 27 IU/L (<35); Albumin Globulin Ratio 1.4 (1.0-2.8); Alkaline Phosphatase 85 U/L (38-126); Aspartate Aminotransferase 35 IU/L (14-36); BUN Creatinine Ratio 19.4 (6-22); Bilirubin Total 1.1 mg/dL (0.2-1.3); Blood Urea Nitrogen 14 mg/dL (7-17); Calcium 9.6 mg/dL (8.4-10.2); Carbon Dioxide 20 mmol/L (22-32); Chloride 106 mmol/L (98-107); Estimated Glomerular Filt Rate > 60 mL/min (>60); Globulin 3.7 g/dL (1.7-4.1); Glucose 89 mg/dL (70-100); Potassium 4.6 mmol/L (3.4-5.1); Sodium 140 mmol/L (137-145); Total Protein 8.7 g/dL (6.3-8.2)
[2023-05-04 13:38] LABS: HEMOLYSIS 81 (0-50)
--- NOTE | 2023-05-04 16:18 | PC.NURSE ---
Pt a&ox4. Speaking in full clear & coherent sentences. Pt denies pain. Denies any visual disturbances and/or changes. Pt ambulates independently to bathroom. at bedside.
[2023-05-04] MEDS: LORazepam 2 MG/ML INJ 1 MG IV (17:26)
== END 2023-05-04 19:20 | disposition home or self-care (01) ==
PROVIDERS: Emergency Provider Emergency Medicine; PCP Family Medicine
DX: G45.9 Transient cerebral ischemic attack, unspecified (principal); Z79.82 Long term (current) use of aspirin
CPT/HCPCS: 36415; 70553; 80053; 81003; 82962; 83036; 85025; 96374; 99284; 99285; J2060

== ENCOUNTER → 2024-01-01 | Outpatient (CLI) | payer OTHER, SELFPAY ==
[2023-04-28 23:50] VITALS: BMI 22.9
== END ==
PROVIDERS: PCP Family Medicine; Referring Provider Internal Medicine; Visit Provider Internal Medicine
DX: Z23 Encounter for immunization (principal)
CPT/HCPCS: 90471; 90656

== ENCOUNTER → 2024-01-20 08:25 | Outpatient (CLI) | payer OTHER, SELFPAY ==
[2023-04-28 23:50] VITALS: BMI 22.9
[2024-01-20 09:10] LABS: Add Manual Diff / Slide Review NO; Basophils Absolute Auto 100 /uL (0-100); Basophils Percent Auto 0.6 % (0-2); Eosinophils Absolute Auto 100 /uL (0-450); Hematocrit 41.5 % (36-46); Hemoglobin 14.2 g/dL (12.0-16.0); Lymphocytes Absolute Auto 1700 /uL (1100-4500); Lymphocytes Percent Auto 20.7 % (25-40); Mean Corpuscular HGB Conc 34.3 % (30-36); Mean Corpuscular Hemoglobin 32.4 PG (26-34); Mean Corpuscular Volume 94.3 fL (80-100); Monocytes Absolute Auto 600 /uL (0-900); Monocytes Percent Auto 6.8 % (3-14); Neutrophils Absolute Auto 6000 /uL (1500-7000); Neutrophils Percent Auto 70.9 % (50-75); Platelet Count 325 X10^3/uL (150-400); Red Cell Distribution Width 13.4 % (11.6-14.8); White Blood Cell Count 8.4 X10^3/uL (4.5-11.0)
[2024-01-20 09:26] LABS: HEMOLYSIS < 15 (0-50); Iron 150 ug/dL (37-170)
[2024-01-20 09:27] LABS: Alanine Aminotransferase 23 IU/L (<35); Albumin 4.6 g/dL (3.5-5.0); Albumin Globulin Ratio 1.6 (1.0-2.8); Alkaline Phosphatase 71 U/L (38-126); Aspartate Aminotransferase 26 IU/L (14-36); BUN Creatinine Ratio 21.7 (6-22); Bilirubin Total 0.9 mg/dL (0.2-1.3); Blood Urea Nitrogen 15 mg/dL (7-17); Calcium 9.1 mg/dL (8.4-10.2); Carbon Dioxide 17 mmol/L (22-32); Chloride 108 mmol/L (98-107); Estimated Glomerular Filt Rate > 60 mL/min (>60); Globulin 2.8 g/dL (1.7-4.1); Glucose 101 mg/dL (70-100); HEMOLYSIS < 15 (0-50); Potassium 4.3 mmol/L (3.4-5.1); Sodium 135 mmol/L (137-145); Total Protein 7.4 g/dL (6.3-8.2)
[2024-01-20 09:38] LABS: Percent Iron Saturation 41 % (15-50); Total Iron Binding Capacity 362 ug/dL (265-497); Transferrin 300 mg/dL (206-381)
[2024-01-20 09:45] LABS: Free T4, Direct Thyroxine 0.73 ng/dL (0.78-2.19)
[2024-01-20 09:58] LABS: Thyroid Stimulating Hormone 3.12 uIU/mL (0.47-4.68)
[2024-01-20 10:18] LABS: Vitamin B12 360 pg/mL (239-931)
[2024-01-20 12:49] LABS: Ferritin 34 ng/mL (11-264)
== END ==
PROVIDERS: PCP Family Medicine; Referring Provider Physician Assistant; Visit Provider Physician Assistant
DX: E78.2 Mixed hyperlipidemia (principal); E55.9 Vitamin D deficiency, unspecified; R53.83 Other fatigue; Z86.2 Personal history of diseases of the blood and blood-forming organs and certain disorders involving the immune mechanism
CPT/HCPCS: 36415; 80053; 82306; 82607; 82728; 83540; 83550; 84439; 84443; 85025

== ENCOUNTER → 2024-04-18 17:30 | Outpatient (CLI) | payer OTHER, SELFPAY ==
[2023-04-28 23:50] VITALS: BMI 22.9
--- NOTE | 2024-04-18 17:31 | DI.MG.S_ITS ---
BILATERAL DIGITAL SCREENING MAMMOGRAM 3D/2D WITH CAD: 04/18/2024 CLINICAL: Routine screening. Family history of breast cancer. Comparison is made to exams dated: 04/18/2024 mammogram, 03/27/2023 mammogram, 01/10/2022 mammogram, 12/25/2020 mammogram, 12/09/2019 mammogram - [facility], and 12/20/2019 mammogram - [facility]. There are scattered areas of fibroglandular density (category b / 25%-50% glandular tissue). Current study was also evaluated with a Computer Aided Detection (CAD) system. There is a biopsy clip in the left breast. No significant masses, calcifications, or other findings are seen in either breast. There has been no significant interval change. IMPRESSION: BENIGN There is no mammographic evidence of malignancy. A 1 year screening mammogram is recommended. Based on the Tyrer Cuzick model (a risk assessment model) the patient's lifetime risk is 6.2% and her 10 year risk is 2.5%. According to the ACR, ACS, and NCCN guidelines, an annual breast MRI exam along with mammogram is recommended if the patient's lifetime risk is 20% or greater. This exam was interpreted at Station ID: [id number]. NOTE: For mammograms, a report in lay terms will be sent to the patient. Approximately 15% of breast malignancies will not be visualized mammographically. In the management of a palpable breast mass, a negative mammogram must not discourage biopsy of a clinically suspicious lesion. Electronically Signed By: Arielle Dixon M.D., Ph.D. amanda/connie:04/20/2024 13:28:26 letter sent: Normal Exam ACR BI-RADS Category 2: Benign
== END ==
PROVIDERS: PCP Family Medicine; Referring Provider Family Medicine; Visit Provider Family Medicine
DX: Z12.31 Encounter for screening mammogram for malignant neoplasm of breast (principal); Z80.3 Family history of malignant neoplasm of breast
CPT/HCPCS: 77063; 77067